=== PATIENT | male | born 1950 | race Caucasian/White ===

== ENCOUNTER 2020-08-02 19:35 | Inpatient (IN) | payer MEDICARE, OTHER ==
[2020-08-02] MEDS ORDERED: ASPIRIN 81 MG PO STA (20:05)
[2020-08-02] MEDS ORDERED: FAMOTIDINE 20 MG/2 ML VIAL IV STA (20:05)
--- NOTE | 2020-08-02 20:28 | XR ---
EXAMINATION TYPE: XR chest 2V DATE OF EXAM: 08/02/2020 COMPARISON: 10/28/2013 HISTORY: Chest pain TECHNIQUE: 2 views FINDINGS: Heart and mediastinum are normal. Lungs are clear. Diaphragm is normal. There are chest semaj ds. IMPRESSION: Normal chest. No change.
--- NOTE | 2020-08-02 20:29 | ED ---
Chest Pain HPI - General Chief Complaint: Chest Pain Stated Complaint: Chest PAin, SOB Time Seen by Provider: 08/02/20 19:48 Source: patient Mode of arrival: wheelchair Limitations: no limitations - History of Present Illness Initial Comments: This is a 70-year-old male with a history of CAD, hypertension, hyperlipidemia and previous stents who presents emergency department for chest pain and upper abdominal pain. The patient states is been going on intermittent for the last 3 days or so. Nothing seems to make it better or worse. It seems to come out of nowhere. He states that he had an episode that woke him up at 3 AM today and has been constant all day. He states it's not exertional. Is not worse with movement or breathing. He states he does not feel short of breath. No cough, fevers, chills. He denies any lower chrie pain or swelling. He states that the pain seems to be in the lower chest or epigastric region and Radiates around to the right flank and to the middle of his back. He describes as an aching sensation and 8 out of 10. He states that he used to have angina and take nitroglycerin frequently however ran out recently. He is been trying Mylanta which did seem to improve his symptoms initially however today did not seem to help speaking in emergency department. He states that he does follow with the cell cleaner, Dr. Springer our has not had any stress test or a cardiac workup in the last 4 years. - Related Data Home Medications Medication Instructions Recorded Confirmed Metoprolol Tartrate [Lopressor] 25 mg PO BID 08/02/20 08/02/20 lisinopriL [Zestril] 5 mg PO DAILY 08/02/20 08/02/20 Previous Rx's Medication Instructions Recorded Aspirin 325 mg PO DAILY #30 tab 10/31/13 Atorvastatin [Lipitor] 80 mg PO HS #30 tab 10/31/13 Nitroglycerin Sl Tabs [Nitrostat] 0.4 mg SUBLINGUAL Q5M PRN #20 tab 10/31/13 Allergies Allergy/AdvReac Type Severity Reaction Status Date / Time No Known Allergies Allergy Verified 08/02/20 21:17 Review of Systems ROS Statement: Those systems with pertinent positive or pertinent negative responses have been documented in the HPI. ROS Other: All systems not noted in ROS Statement are negative. EKG Findings - EKG Comments: EKG Findings:: EKG showing no signs rhythm with a rate 67. There is no abnormal ST 7 changes or T-wave or department QTC 397. Other intervals normal. No ectopy. Past Medical History Past Medical History: Myocardial Infarction ([place]) Last Myocardial Infarction Date:: 10-28-2013 History of Any Multi-Drug Resistant Organisms: None Reported Past Surgical History: Heart Catheterization With Stent, Hernia Repair, Orthopedic Surgery Additional Past Surgical History / Comment(s): inguinal Past Anesthesia/Blood Transfusion Reactions: No Reported Reaction Past Psychological History: No Psychological Hx Reported Smoking Status: Current every day smoker Past Alcohol Use History: None Reported Past Drug Use History: None Reported General Exam - General Exam Comments Initial Comments: Constitutional: [Awake alert] [Appears comfortable] Head: [Normocephalic atraumatic] Eyes: [no conjunctival injection] [No scleral icterus] [EOMI] Neck: [No JVD] [Supple] Heart: [Regular rate rhythm] [normal S1-S2] [no murmurs] Lungs: [Clear to auscultation bilaterally] [No wheezing] [No rales] Abdomen: [Soft] [nondistended] to palpation in the epigastric region without rebound or guarding Extremities: [Non edematous] [DP pulses intact] [Radial pulses intact] Neuro: [A&Ox3] [No focal neurologic deficits] Psych: [Appropriate mood and affect] Limitations: no limitations Course Vital Signs 08/02/20 19:38 Temperature 97.6 F Pulse Rate 74 Respiratory 20 Rate Blood Pressure 149/82 O2 Sat by Pulse 97 Oximetry Chest Pain MDM - MDM This is a 70-year-old male with history of CAD who presents emergency department for chest pain and epigastric pain. Patient had tenderness in his epigastric region on physical examination. He was given aspirin and Pepcid with complete resolution of his symptoms. EKG does not reveal any ischemic changes and troponin was negative. I did do an ultrasound of the right upper quadrant without any signs of acute cholecystitis or biliary teary etiology for his pain symptoms may be gastric related however with his history of CAD and stents and significant risk factors I felt the patient should be watched in the hospital and possibly have further workup performed to evaluate a cardiac etiology of his symptoms. Patient was agreeable with this plan and all questions were answered. Disposition Clinical Impression: Chest pain, Epigastric pain Disposition: ADMITTED IP TO THIS HOSP Condition: Stable Referrals: Nonstaff,Physician [REFERRING] - 1-2 days
[2020-08-02 20:33] LABS: Basophils % (A) 0 %; Eosinophils # (A) 0.2 k/uL (0-0.7); Eosinophils % (A) 2 %; HCT 45.8 % (39.0-53.0); HGB 15.9 gm/dL (13.0-17.5); Lymphocytes % (A) 19 %; MCH 32.6 pg (25.0-35.0); MCHC 34.7 g/dL (31.0-37.0); MCV 93.9 fL (80.0-100.0); Mean Platelet Volume 7.3; Monocytes # (A) 0.4 k/uL (0-1.0); Monocytes % (A) 4 %; Neutrophils # (A) 7.5 k/uL (1.3-7.7); Neutrophils % (A) 73 %; Platelet Count 169 k/uL (150-450); RBC 4.87 m/uL (4.30-5.90); RDW 12.8 % (11.5-15.5); WBC 10.2 k/uL (3.8-10.6)
[2020-08-02 20:46] LABS: Partial Thromboplastin Time 22.8 sec (22.0-30.0); Prothrombin Time 10.4 sec (9.0-12.0)
--- NOTE | 2020-08-02 21:00 | US ---
EXAMINATION TYPE: US abdomen limited DATE OF EXAM: 08/02/2020 COMPARISON: NONE CLINICAL HISTORY: Epigastric RUQ pain. EXAM MEASUREMENTS: Liver Length: 13.8 cm Gallbladder Wall: .4 cm CBD: .4 cm Right Kidney: 9.5 x 3.8 x 4.3 cm Pancreas: Tail obscured by overlying bowel gas Liver: wnl Gallbladder: No stones seen Evidence for sonographic Upton's sign: No CBD: wnl Right Kidney: No hydronephrosis or masses seen IMPRESSION: Negative exam. No gallstones or dilated ducts.
[2020-08-02 21:07] LABS: Calcium 9.5 mg/dL (8.4-10.2); Magnesium 2.3 mg/dL (1.6-2.3); Potassium 3.9 mmol/L (3.5-5.1); Total Bilirubin 0.6 mg/dL (0.2-1.3); Total Protein 6.7 g/dL (6.3-8.2)
[2020-08-02] MEDS ORDERED: NITROGLYCERIN SL TABS 0.4 MG TAB SUBLINGUAL PRN (21:51)
[2020-08-03 06:22] LABS: Cholesterol 99 mg/dL (<200); HDL Cholesterol 29 mg/dL (40-60); LDL Cholesterol,Calculated 43 mg/dL (0-99); Triglycerides 136 mg/dL (<150)
[2020-08-03] MEDS ORDERED: ASPIRIN 325 MG TAB PO SCH (09:00)
[2020-08-03] MEDS ORDERED: AMINOPHYLLINE 500 MG/20 ML VIAL IV PRN (09:25)
[2020-08-03] MEDS ORDERED: REGADENOSON 0.4 MG/5 ML SYRINGE IV PRN (09:25)
[2020-08-03] MEDS ORDERED: CAFFEINE CITRATE 60 MG/3 ML VIAL IV PRN (09:25)
[2020-08-03] MEDS ORDERED: NITROGLYCERIN SL TABS 0.4 MG TAB SUBLINGUAL PRN (09:59)
--- NOTE | 2020-08-03 10:17 | P.CRDCN ---
History of Present Illness History of present illness: HISTORY OF PRESENTING ILLNESS This is a pleasant 70-year-old male past medical history significant for nicotine dependence, hypertension, hyperlipidemia, prior [place] and coronary artery disease status post PCI.. He follows in the office with Dr. Springer. We have been asked to see in consultation for chest pain. Patient is seen and examined at bedside in no apparent distress. . Patient started having chest pain yesterday at 3 AM. He describes the chest pain as a "gas pressure" and that he feels full and it radiates to his back. He states that he took sublingual nitro and Maalox and his chest pain resolved. Chest pain is nonexertional. The pain is not sharp. It feels more of a dull feeling. He denies any palpitations, fatigue, weakness, lightheadedness, syncope. He does endorse some shortness of breath at night and sometimes he has to sleep in a recliner himself on his couch. He does state that sometimes he has to sleep with more than one pillow due to shortness of breath. He denies any history of a stroke, diabetes. He states he is compliant with his medication. He denies alcohol or illicit drug use. He does continue to smoke 1.5 packs per day. Laboratory data reviewed, troponin negative 3, BNP 181, potassium 3.9, sodium 141, magnesium 2.3, WBC 10.2, hemoglobin 15. Triglycerides 136, cholesterol 99, LDL 43, HDL 29. Vital signs BP 120/70, heart rate 67, maintaining oxygen saturations on room air, Afebrile. Telemetry tracings indicate sinus rhyth m.Chest xray no acute cardiopulmonary process Current home cardiac medications include lisinopril 5 mg daily, metoprolol tartrate 25 mg twice a day, atorvastatin 80 mg nightly, aspirin daily. DIAGNOSTICS EKG reveals sinus rhythm, T-wave inversion in lead III, no significant ST-T wave abnormalities, no change from prior EKG 2014 Last Cardiac Catheterization LAD 50-60% lesion. OMbranch has 40-50% lesion. RCA is a dominant vessel, mild ostial disease and also diffuse plaque. The PLV branch has a lesion which is 95% lesion. The proximal portion of the PDA 90% lesion - Successful stenting of large PLV branch of the dominant RCA and PDA branch of the dominant RCA. REVIEW OF SYSTEMS At the time of my exam: CONSTITUTIONAL: Denies fever or chills. CARDIOVASCULAR: +chest pain.+ shortness of breath, +orthopnea, Denies PND or palpitations. RESPIRATORY: Denies cough. GASTROINTESTINAL: Denies abdominal pain, diarrhea, constipation, nausea or vomiting. MUSCULOSKELETAL: Denies myalgias. NEUROLOGIC: Denies numbness, tingling, headacbe or weakness. ENDOCRINE: Denies fatigue, weight change, polydipsia or polyurina. GENITOURINARY: Denies burning, hematuria or urgency with micturation. HEMATOLOGIC: Denies history of anemia or bleeding. PHYSICAL EXAMINATION CONSTITUTIONAL: No apparent distress. HEENT: Head is normocephalic. Pupils are equal, round. Sclerae anicteric. Mucous membranes of the mouth are moist. No JVD. No carotid bruit. CHEST EXAMINATION: Lungs are clear to auscultation. No chest wall tenderness is noted on palpation or with deep breathing. HEART EXAMINATION: Regular rate and rhythm. S1, S2 heard. No murmurs, gallops or rub. ABDOMEN: Soft, nontender. Positive bowel sounds. EXTREMITIES: 2+ peripheral pulses, no lower extremity edema and no calf tenderness. SKIN:intact NEUROLOGIC EXAMINATION: Patient is awake, alert and oriented x3. ASSESSMENT History of inferior wall [place] s/p PCI large PLV branch of the dominant RCA and PDA branch of the dominant RCA. Coronary artery disease nicotine dependence hypertension hyperlipidemia PLAN -Will obtain 2D echo and lexiscan stress test. If no acute findings, ok to discharge patient and follow up outpatient in the office with Dr. Springer as scheduled. -Continue lisinopril 5mg daily, metoprolol 25mg BID, atorvastatin 80mg nightly, aspirin 81mg daily. Nurse Practitioner note has been reviewed, I agree with a documented findings and plan of care. Patient was seen and examined. Past Medical History Past Medical History: Myocardial Infarction ([place]) Last Myocardial Infarction Date:: 10-28-2013 History of Any Multi-Drug Resistant Organisms: None Reported Past Surgical History: Heart Catheterization With Stent, Hernia Repair, Orthopedic Surgery Additional Past Surgical History / Comment(s): inguinal Past Anesthesia/Blood Transfusion Reactions: No Reported Reaction Date of Last Stent Placement:: 2015 Past Psychological History: No Psychological Hx Reported Additional Psychological History / Comment(s): He is has 2 children and several grandchildren he is retired from [employer] Smoking Status: Current every day smoker Past Alcohol Use History: None Reported Past Drug Use History: None Reported - Past Family History Father Family Medical History: Myocardial Infarction ([place]) Mother Family Medical History: Myocardial Infarction ([place]) Medications and Allergies Home Medications Medication Instructions Recorded Confirmed Type Aspirin 325 mg PO DAILY #30 tab 10/31/13 08/02/20 Rx Atorvastatin [Lipitor] 80 mg PO HS #30 tab 10/31/13 08/02/20 Rx Nitroglycerin Sl Tabs [Nitrostat] 0.4 mg SUBLINGUAL Q5M PRN #20 tab 10/31/13 08/02/20 Rx Metoprolol Tartrate [Lopressor] 25 mg PO BID 08/02/20 08/02/20 History lisinopriL [Zestril] 5 mg PO DAILY 08/02/20 08/02/20 History Allergies Allergy/AdvReac Type Severity Reaction Status Date / Time No Known Allergies Allergy Verified 08/02/20 21:17 Physical Exam Vitals: Vital Signs Temp Pulse Pulse Resp BP BP Pulse Ox 08/03/20 03:00 70 18 08/03/20 02:00 97.6 F 70 18 144/80 95 08/02/20 22:58 97.5 F L 70 18 146/79 95 08/02/20 22:57 97.5 F L 70 18 146/79 99 08/02/20 22:31 60 16 142/83 97 08/02/20 19:38 97.6 F 74 20 149/82 97 Intake and Output 08/02/20 08/03/20 08/03/20 22:59 06:59 14:59 Other: Voiding Method Toilet # Voids 3 Weight 68.039 kg Results 08/02/20 20:15 08/02/20 20:15 Cardiac Enzymes 08/02/20 08/02/20 08/02/20 Range/Units 20:15 20:15 22:32 AST 20 (17-59) U/L Troponin I <0.012 <0.012 (0.000-0.034) ng/mL 08/03/20 Range/Units 02:32 AST (17-59) U/L Troponin I <0.012 (0.000-0.034) ng/mL Coagulation 08/02/20 Range/Units 20:15 PT 10.4 (9.0-12.0) sec APTT 22.8 (22.0-30.0) sec Lipids 08/03/20 Range/Units 02:32 Triglycerides 136 (<150) mg/dL Cholesterol 99 (<200) mg/dL HDL Cholesterol 29 L (40-60) mg/dL CBC 08/02/20 Range/Units 20:15 WBC 10.2 (3.8-10.6) k/uL RBC 4.87 (4.30-5.90) m/uL Hgb 15.9 (13.0-17.5) gm/dL Hct 45.8 (39.0-53.0) % Plt Count 169 (150-450) k/uL Comprehensive Metabolic Panel 08/02/20 Range/Units 20:15 Sodium 141 (137-145) mmol/L Potassium 3.9 (3.5-5.1) mmol/L Chloride 107 (98-107) mmol/L Carbon Dioxide 27 (22-30) mmol/L BUN 14 (9-20) mg/dL Creatinine 1.04 (0.66-1.25) mg/dL Glucose 110 H (74-99) mg/dL Calcium 9.5 (8.4-10.2) mg/dL AST 20 (17-59) U/L ALT 12 (4-49) U/L Alkaline Phosphatase 105 (38-126) U/L Total Protein 6.7 (6.3-8.2) g/dL Albumin 4.0 (3.5-5.0) g/dL Current Medications Generic Name Dose Route Start Last Admin Trade Name Freq PRN Reason Stop Dose Admin Aspirin 325 mg 08/03/20 09:00 Aspirin 325 Mg Tab PO DAILY SEGUNDO Nitroglycerin 0.4 mg 08/02/20 21:51 Nitroglycerin Sl Tabs 0.4 Mg Tab SUBLINGUAL Q5M PRN Chest Pain Intake and Output 08/02/20 08/03/20 08/03/20 22:59 06:59 14:59 Other: Voiding Method Toilet # Voids 3 Weight 68.039 kg 08/02/20 20:15 08/02/20 20:15
--- NOTE | 2020-08-03 11:46 | P.STRESS ---
- Stress Test Note Stress Test Results/Findings: Exam Performed: NM stress lexiscan cardiolite Exam Date: 08/03/20 Reason for Exam: CP Height: 5 ft 9 in Weight: 68.04 kg Protocol: LEXISCAN CARDIOLITE Stage: NA Duration of Exercise: NA Resting Heart Rate: 71 Resting Blood Pressure: 143/79 Maximum Achieved Heart Rate: 116 Maximum Achieved Blood Pressure: 146/86 85% PMHR: 128 100% PMHR: 150 METS: NA Technologist Comment: Stress Test Results/Findings: This is a 70-year-old gentleman was admitted to the hospital with chest pain. Has history of ischemic heart disease, hypertension and smoking history. Stress data: Baseline EKG showed sinus rhythm with normal NV interval and QRS duration Blood pressure at rest is 143/79 with pulse rate of 71. A standard dose of Lexiscan was infused. EKG is a taken during and after infusion did not reveal any significant changes from her baseline. Patient complained of mild shortness of breath. Final impression: #1. Negative Lexiscan stress test #2. Report on nuclear images to be given by the radiologist
[2020-08-03] MEDS: lisinopriL 5 MG TAB PO SCH (11:57)
[2020-08-03] MEDS: ASPIRIN 81 MG PO SCH (11:57)
[2020-08-03] MEDS: METOPROLOL TARTRATE 25 MG TAB PO SCH ×2 (11:57→20:37)
--- NOTE | 2020-08-03 12:17 | NM ---
EXAMINATION TYPE: NM stress lexiscan cardiolite DATE OF EXAM: 08/03/2020 COMPARISON: NONE HISTORY: Chest pain TECHNIQUE: After the intravenous administration of 9.8 mCi Tc 99m Sestamibi - Cardiolite resting SPE CT images acquired 55 minutes post injection. At peak stress 24.9 mCi Tc 99m Sestamibi - Stress images obtained 35 minutes post injection The patient was stressed with 0.4mg Lexiscan. FINDINGS: No fixed defects are evident. There is a defect along the proximal to distal inferior lateral wall on stress images. This area has a more normal radiotracer distribution on the resting images images. Polar maps identifies area altho ugh the defect is smaller on the polar maps than on the SPECT imaging. Wall motion is normal. Ejection fraction is calculated to be 68 %. IMPRESSION: 1. Stress-induced ischemic change inferior lateral wall. A [place] level critical message alert has been initiated for Ramone Ferrell MD~[id number] via the [employer] Critical Results System on 08/03/2020 12:14 PM. This message alert has been sent to Ramone dominguez MD~[id number] via the preferences provided by the clinician for the receipt of Radiology Critical Fi ndings. Message ID [id number].
[2020-08-03] MEDS ORDERED: SODIUM CHLORIDE 0.9% 1,000 ML in EMPTY BAG 1 BAG IV ONE (14:00)
[2020-08-03] MEDS ORDERED: ALPRAZolam 0.5 MG TAB PO PRN (14:00)
[2020-08-03] MEDS ORDERED: ALPRAZolam 0.25 MG TAB PO PRN (14:00)
--- NOTE | 2020-08-03 16:36 | P.HPIM ---
History of Present Illness H&P Date: 08/03/20 Chief Complaint: Chest pain Mr. Saucedo is a 70-year-old male with a past medical history of hypertension, hyperlipidemia, coronary artery disease status post 3 stents, smoking history, who follows with cardiology, who is a patient of Dr. Springer as outpatient imaging in with a chief complaint of chest pain. Patient states that he had chest pain that woke him up from sleep at 3 AM in the morning. He states that he had a pressure-like sensation in the middle of his chest that was slightly radiating to his back, associated with some sweating. He states that he took sublingual nitroglycerin and Maalox after which his chest pain resolved. Patient denied having any lightheadedness, palpitations or syncopal episode when he had the chest pain. Patient mentions that he had mild difficulty in breathing at the time when he had the chest pain that eventually resolved. Patient denies having any lower extremity swelling. He has history of smoking 1-1/2 packs a day for many years. In the ER patient had workup done, troponins 3 negative, BNP 181. Chest x-ray showing no acute cardiopulmonary process. EKG showing sinus rhythm with T-wave inversion in lead 3. So eventually the patient was admitted for workup of his chest pain. Patient was seen by cardiology, had a stress test done this morning that was positive for stress-induced ischemic changes in the inferior lateral wall. So the patient is being scheduled for cardiac cath for tomorrow morning. Review of Systems REVIEW OF SYSTEMS: CONSTITUTIONAL: No fever, no malaise, no fatigue. HEENT: No recent visual problems or hearing problems. Denied any sore throat. CARDIOVASCULAR: As per HPI PULMONARY: No shortness of breath, no cough, no hemoptysis. GASTROINTESTINAL: No diarrhea, no nausea, no vomiting, no abdominal pain. NEUROLOGICAL: No headaches, no weakness, no numbness. HEMATOLOGICAL: Denies any bleeding or petechiae. GENITOURINARY: Denies any burning micturition, frequency, or urgency. MUSCULOSKELETAL/RHEUMATOLOGICAL: No joint pain or swelling ENDOCRINE: Denies any polyuria or polydipsia. The rest of the 14-point review of systems is negative. Past Medical History Past Medical History: Myocardial Infarction ([place]) Last Myocardial Infarction Date:: 10-28-2013 History of Any Multi-Drug Resistant Organisms: None Reported Past Surgical History: Heart Catheterization With Stent, Hernia Repair, Orthopedic Surgery Additional Past Surgical History / Comment(s): inguinal Past Anesthesia/Blood Transfusion Reactions: No Reported Reaction Date of Last Stent Placement:: 2015 Past Psychological History: No Psychological Hx Reported Additional Psychological History / Comment(s): He is has 2 children and several grandchildren he is retired from [employer] Smoking Status: Current every day smoker Past Alcohol Use History: None Reported Past Drug Use History: None Reported - Past Family History Father Family Medical History: Myocardial Infarction ([place]) Mother Family Medical History: Myocardial Infarction ([place]) Medications and Allergies Home Medications Medication Instructions Recorded Confirmed Type Aspirin 325 mg PO DAILY #30 tab 10/31/13 08/02/20 Rx Atorvastatin [Lipitor] 80 mg PO HS #30 tab 10/31/13 08/02/20 Rx Nitroglycerin Sl Tabs [Nitrostat] 0.4 mg SUBLINGUAL Q5M PRN #20 tab 10/31/13 08/02/20 Rx Metoprolol Tartrate [Lopressor] 25 mg PO BID 08/02/20 08/02/20 History lisinopriL [Zestril] 5 mg PO DAILY 08/02/20 08/02/20 History Allergies Allergy/AdvReac Type Severity Reaction Status Date / Time No Known Allergies Allergy Verified 08/02/20 21:17 Physical Exam Vitals: Vital Signs Temp Pulse Pulse Resp BP BP Pulse Ox 08/03/20 12:42 18 125/77 93 L 08/03/20 08:00 16 08/03/20 07:00 98.0 F 67 16 123/70 95 08/03/20 03:00 70 18 08/03/20 02:00 97.6 F 70 18 144/80 95 08/02/20 22:58 97.5 F L 70 18 146/79 95 08/02/20 22:57 97.5 F L 70 18 146/79 99 08/02/20 22:31 60 16 142/83 97 08/02/20 19:38 97.6 F 74 20 149/82 97 Intake and Output 08/02/20 08/03/20 08/03/20 22:59 06:59 14:59 Other: Voiding Method Toilet Toilet # Voids 3 Weight 68.039 kg 68.04 kg PHYSICAL EXAMINATION: GENERAL: The patient is alert and oriented x3, not in any acute distress. Chronically ill appearing HEENT: Pupils are round and equally reacting to light. EOMI. No scleral icterus. No conjunctival pallor. Normocephalic, atraumatic. No pharyngeal erythema. No thyromegaly. CARDIOVASCULAR: S1 and S2 present. No murmurs, rubs, or gallops. PULMONARY: Decreased breath sounds in all lung quinn. No wheeze or crackles. ABDOMEN: Soft, nontender, nondistended, normoactive bowel sounds. No palpable organomegaly. MUSCULOSKELETAL: No joint swelling or deformity. EXTREMITIES: No cyanosis, clubbing, or pedal edema. NEUROLOGICAL: Gross neurological examination did not reveal any focal deficits. SKIN: No rashes. Results CBC & Chem 7: 08/02/20 20:15 08/02/20 20:15 Labs: Abnormal Lab Results - Last 24 Hours (Table) 08/02/20 08/03/20 Range/Units 20:15 02:32 Glucose 110 H (74-99) mg/dL HDL Cholesterol 29 L (40-60) mg/dL Thrombosis Risk Factor Assmnt - Choose All That Apply Each Factor Represents 1 point: Acute IA Each Risk Factor Represents 2 Points: Age 61-74 years Other congenital or acquired thrombophilia - If yes, enter type in comment: No Thrombosis Risk Factor Assessment Total Risk Factor Score: 3 Thrombosis Risk Factor Assessment Level: Moderate Risk Assessment and Plan Assessment: ASSESSMENT Chest pain Positive stress test Coronary artery disease status post stenting History of inferior wall [place] Nicotine dependence ongoing Hypertension Hyperlipidemia PLAN: As the patient has positive stress test, his being boarded for cardiac cath tomorrow morning. Cardiology Dr. Springer on board and following the patient. Continue with beta bessy, statin, aspirin, ANGELIA inhibitor. Further recommendations to follow depending on the progress of the patient.
[2020-08-03] MEDS: ATORVASTATIN 80 MG TAB PO SCH (20:37)
[2020-08-04] MEDS: ASPIRIN 81 MG PO SCH (05:40)
[2020-08-04] MEDS: lisinopriL 5 MG TAB PO SCH (05:40)
[2020-08-04] MEDS: METOPROLOL TARTRATE 25 MG TAB PO SCH (05:40)
[2020-08-04 05:55] LABS: Basophils % (A) 0 %; Eosinophils # (A) 0.2 k/uL (0-0.7); Eosinophils % (A) 1 %; HCT 44.2 % (39.0-53.0); HGB 15.1 gm/dL (13.0-17.5); Lymphocytes # (A) 1.8 k/uL (1.0-4.8); Lymphocytes % (A) 16 %; MCH 31.8 pg (25.0-35.0); MCHC 34.1 g/dL (31.0-37.0); MCV 93.4 fL (80.0-100.0); Mean Platelet Volume 6.9; Monocytes # (A) 0.5 k/uL (0-1.0); Monocytes % (A) 5 %; Neutrophils # (A) 8.7 k/uL (1.3-7.7); Neutrophils % (A) 77 %; Platelet Count 149 k/uL (150-450); RBC 4.73 m/uL (4.30-5.90); RDW 12.8 % (11.5-15.5); WBC 11.4 k/uL (3.8-10.6)
[2020-08-04 06:21] LABS: African American GFR (CKD) >90 (>60 ml/min/1.73 sqM); Anion Gap 3 mmol/L; Blood Urea Nitrogen 14 mg/dL (9-20); Calcium 8.8 mg/dL (8.4-10.2); Carbon Dioxide 28 mmol/L (22-30); Chloride 109 mmol/L (98-107); Glucose 100 mg/dL (74-99); Non-African American GFR(CKD) 79 (>60 ml/min/1.73 sqM); Potassium 3.7 mmol/L (3.5-5.1); Sodium 140 mmol/L (137-145)
[2020-08-04] MEDS ORDERED: HEPARIN SODIUM,PORCINE 10,000 UNIT in SODIUM CHLORIDE 0.9% 1,000 ML IRRIGATION PRN (07:00)
[2020-08-04] MEDS ORDERED: HEPARIN SODIUM,PORCINE 2,500 UNIT in SODIUM CHLORIDE 0.9% 250 ML IRRIGATION PRN (07:00)
--- NOTE | 2020-08-04 09:26 | EST ---
Stress Test Results/Findings: Exam Performed: NM stress lexiscan cardiolite Exam Date: 08/03/20 Reason for Exam: CP Height: 5 ft 9 in Weight: 68.04 kg Protocol: LEXISCAN CARDIOLITE Stage: NA Duration of Exercise: NA Resting Heart Rate: 71 Resting Blood Pressure: 143/79 Maximum Achieved Heart Rate: 116 Maximum Achieved Blood Pressure: 146/86 85% PMHR: 128 100% PMHR: 150 METS: NA Technologist Comment: Stress Test Results/Findings: This is a 70-year-old gentleman was admitted to the hospital with chest pain. Has history of ischemic heart disease, hypertension and smoking history. Stress data: Baseline EKG showed sinus rhythm with normal IA interval and QRS duration Blood pressure at rest is 143/79 with pulse rate of 71. A standard dose of Lexiscan was infused. EKG is a taken during and after infusion did not reveal any significant changes from her baseline. Patient complained of mild shortness of breath. Final impression: #1. Negative Lexiscan stress test #2. Report on nuclear images to be given by the radiologist SALVADOR
[2020-08-04] MEDS ORDERED: LIDOCAINE 1% INJ 10MG/ML (20 ML MDV) ONE (10:54)
[2020-08-04] MEDS ORDERED: LIDOCAINE 1% INJ 10MG/ML (20 ML MDV) SQ ONE (11:16)
[2020-08-04] MEDS ORDERED: MIDAZOLAM 2 MG/2 ML VIAL IV ONE (11:16)
[2020-08-04] MEDS ORDERED: IV FLUID CONTINUATION 400 ML IV ONE (11:25)
[2020-08-04] MEDS ORDERED: IOPAMIDOL-370 100ML BTL INJ ONE (11:32)
--- NOTE | 2020-08-04 12:24 | ECHOF ---
Referral Reason:shortness of breath and chest pain MEASUREMENTS -------- HEIGHT: 175.3 cm WEIGHT: 63.5 kg BP: RVIDd: 3.6 cm (< 3.3) IVSd: 1.2 cm (0.6 - 1.1) LVIDd: 3.7 cm (3.9 - 5.3) LVPWd: 1.3 cm (0.6 - 1.1) IVSs: 1.5 cm LVIDs: 3.0 cm LVPWs: 1.3 cm LA Diam: 3.4 cm (2.7 - 3.8) Ao Diam: 3.4 cm (2.0 - 3.7) AV Cusp: 2.0 cm (1.5 - 2.6) MV EXCURSION: 18.742 mm (> 18.000) MV EF SLOPE: 86 mm/s (70 - 150) EPSS: 0.3 cm MV E [place]: 0.55 m/s MV DecT: 195 ms MV A [place]: 0.67 m/s MV E/A Ratio: 0.82 RAP: 5.00 mmHg RVSP: 25.99 mmHg FINDINGS -------- Sinus rhythm. This was a technically good study. LV size, wall thickness and systolic function are normal, with an EF greater than 55%. The left gui tricular size is normal. The right ventricle is normal in size. The left atrial size is normal. The right atrial size is normal. The aortic valve is trileaflet, and appears structurally normal. No aortic stenosis or regurgitation. Mild mitral regurgitation is present. Mild tricuspid regurgitation present. Right ventricular systolic pressure is normal at < 35 mmHg. There is no pulmonic regurgitation present. The aortic root size is normal. There is no pericardial effusion. CONCLUSIONS -------- 1. LV size, wall thickness and systolic function are normal, with an EF greater than 55%. 2. The left ventricular size is normal. 3. The right ventricle is normal in size. 4. The left atrial size is normal. 5. The right atrial size is normal. 6. The aortic valve is trileaflet, and appears structurally normal. No aortic stenosis or regurgitati on. 7. Mild mitral regurgitation is present. 8. Mild tricuspid regurgitation present. 9. The aortic root size is normal. 10. There is no pericardial effusion. TALENT SOURCING SPECIALIST: Jailene Paredes RDCS
--- NOTE | 2020-08-04 15:24 | P.PN ---
Subjective Progress Note Date: 08/04/20 Mr. Saucedo is a 70-year-old male with a past medical history of hypertension, hyperlipidemia, coronary artery disease status post 3 stents, smoking history, who follows with cardiology, who is a patient of Dr. Springer as outpatient imaging in with a chief complaint of chest pain. Patient states that he had chest pain that woke him up from sleep at 3 AM in the morning. He states that he had a pressure-like sensation in the middle of his chest that was slightly radiating to his back, associated with some sweating. He states that he took sublingual nitroglycerin and Maalox after which his chest pain resolved. Patient denied having any lightheadedness, palpitations or syncopal episode when he had the chest pain. Patient mentions that he had mild difficulty in breathing at the time when he had the chest pain that eventually resolved. Patient denies having any lower extremity swelling. He has history of smoking 1-1/2 packs a day for many years. In the ER patient had workup done, troponins 3 negative, BNP 181. Chest x-ray showing no acute cardiopulmonary process. EKG showing sinus rhythm with T-wave inversion in lead 3. So eventually the patient was admitted for workup of his chest pain. Patient was seen by cardiology, had a stress test done this morning that was positive for stress-induced ischemic changes in the inferior lateral wall. So the patient is being scheduled for cardiac cath for tomorrow morning. 08/04/2020 Patient is seen and evaluated status post stress test showing some ischemic changes in the inferior lateral wall and scheduled to undergo cardiac cathete rization today. Patient denies any chest pain, shortness of breath, or palpitations. Patient is currently nothing by mouth for the procedure and will resume diet status post catheterization. Review of systems: Constitutional: No reports of fatigue, fever, or chills Cardiovascular: No reports of chest pain or palpitations Respiratory: No reports of shortness of breath or cough GI: No reports of nausea, vomiting, or diarrhea : No reports of dysuria or retention Neurovascular: No reports of weakness or numbness All medications have been reviewed Objective - Vital Signs Vital signs: Vital Signs Temp 97.4 F L 08/04/20 13:35 Pulse 80 08/04/20 14:45 Resp 16 08/04/20 14:45 BP 128/67 08/04/20 14:45 Pulse Ox 94 L 08/04/20 14:45 Intake & Output 08/03/20 08/04/20 08/04/20 18:59 06:59 18:59 Intake Total 400 Balance 400 Weight 68.04 kg Intake: Oral 400 Other: Voiding Method Toilet Toilet # Voids 2 2 3 - Exam GENERAL: The patient is alert and oriented x3, not in any acute distress. Chronically ill appearing HEENT: Pupils are round and equally reacting to light. EOMI. No scleral icterus. No conjunctival pallor. Normocephalic, atraumatic. No pharyngeal erythema. No thyromegaly. CARDIOVASCULAR: S1 and S2 present. No murmurs, rubs, or gallops. PULMONARY: Decreased breath sounds in all lung quinn. No wheeze or crackles. ABDOMEN: Soft, nontender, nondistended, normoactive bowel sounds. No palpable organomegaly. MUSCULOSKELETAL: No joint swelling or deformity. EXTREMITIES: No cyanosis, clubbing, or pedal edema. NEUROLOGICAL: Gross neurological examination did not reveal any focal deficits. SKIN: No rashes. - Labs CBC & Chem 7: 08/04/20 05:22 08/04/20 05:22 Labs: Abnormal Lab Results - Last 24 Hours (Table) 08/04/20 08/04/20 Range/Units 05:22 05:22 WBC 11.4 H (3.8-10.6) k/uL Plt Count 149 L (150-450) k/uL Neutrophils # 8.7 H (1.3-7.7) k/uL Chloride 109 H (98-107) mmol/L Glucose 100 H (74-99) mg/dL Assessment and Plan Assessment: Chest pain Positive stress test Coronary artery disease status post stenting History of inferior wall [place] Nicotine dependence ongoing Hypertension Hyperlipidemia PLAN: Patient is status post stress test showing positive ischemic changes and underwent cardiac catheterization today with stent placement. Cardiology Dr. Concha jasmine on board and following the patient. Labs today within normal limits. Patient also underwent an echo showing LV size, wall thickness, and systolic function are normal with an EF greater than 55% with some mild mitral and tricuspid regurgitation present. Continue with beta bessy, statin, aspirin, ANGELIA inhibitor. Will repeat a.m. labs and continue to monitor vital signs closely. Further recommendations to follow depending on the progress of the patient. Will discuss with cardiology about discharge medications and follow-up outpatient. Possible discharge in 24 hours.
[2020-08-04] MEDS: SODIUM CHLORIDE 0.9% 1,000 ML IV SCH (16:19)
--- NOTE | 2020-08-04 19:50 | CC ---
CARDIAC CATHETERIZATION REPORT DATE OF SERVICE: PROCEDURE: Left heart catheterization and coronary angiography. PERFORMED BY: Dr. Tari Springer. Moderate conscious sedation time was 21 minutes. Patient was administered Versed. Oxygen saturation, hemodynamics and EKG were monitored closely. CLINICAL INFORMATION: Mr. Martin Saucedo is a 70-year-old gentleman with a history of inferior [place] in 2013 when I performed stenting of both PDA and PLV branches, independent stents to each vessel beyond the ostium. He had a large thrombus-filled PLV with inferior [place] with good recovery after that. He continues to smoke and has a moderate risk factor profile. He came into the hospital with nondescript chest pain and had a stress test which revealed inferolateral partially reversible defect. Given his known CAD and risk factors and prior [employer], he was advised cardiac catheterization after due discussion. Patient understood all details and wished to proceed with the procedure. PROCEDURE NOTE: Under local anesthesia and strict aseptic precautions, a 6-Liberian introducer was placed in the right femoral artery. Using standard Luis Alberto catheters I performed coronary angiography, and the same right catheter was used to check LV pressures. LV gram was not performed. The sheath was taken out and Angio-Seal device used to secure hemostasis and patient was sent to the room in a stable condition. The results were discussed in detail with the patient and . Continued medical therapy was advised. CARDIAC CATHETERIZATION FINDINGS: The left ventricular end-diastolic pressure was about 10-12 mmHg without any gradient across the aortic valve. RIGHT CORONARY ARTERY: Dominant vessel has an ostial lesion of 40% distally. It bifurcates into PDA and PLV, both of which were stented, and the stented areas are widely patent with excellent flow. The mid and proximal RCA has mild irregularities; no significant disease. RCA is therefore dominant with a 40% ostial lesion. No damping, and stented PDA and PLV branches are widely patent. LEFT MAIN CORONARY ARTERY: This is a fair-caliber vessel, has mild calcification distally, tapers to 10% to 15% narrowing and bifurcates into LAD and circumflex. LEFT ANTERIOR DESCENDING CORONARY ARTERY: Fair-caliber vessel extends along the anterior wall, gives off septal and diagonal branches. There is multiple 30% to 40% narrowing throughout the LAD and also in diagonal branches, and the vessel runs all the way to the apex. Overall LAD is a small system, small in caliber, with mild diffuse disease but no critical stenosis. LEFT POSTERIOR CIRCUMFLEX CORONARY ARTERY: Nondominant vessel comes off from the left main and gives a single obtuse marginal and runs in the AV groove. Very proximally as it comes off from the ostium there appears to be an eccentric 70% lesion, best seen in [place] caudal projection. However, the amount of myocardium supplied by circumflex is not very large and the lesion appears to be fairly close to the left main, where there is also a plaque. FINAL IMPRESSION: This patient has a right-dominant system with widely patent PDA and PLV branches of RCA and 40% ostial lesion. The PDA and PLV were stented in 2013. Left main has 15% distal lesion. LAD has 30% to 40% multiple areas of narrowing. Circumflex very proximally, although nondominant, has about an eccentric 70% lesion pretty close to the left main, and there is some plaque in the left main distally as well. RECOMMENDATIONS: Findings were reviewed with the patient and his . Given the fact that the amount of myocardium supplied by circumflex is relatively small and the lesion is close to the left main and intervention would involve stenting the left main as well, I am recommending that we pursue medical therapy, and I have advised the patient regarding smoking cessation and risk factor modification. I reviewed the nuclear scan. I do not believe the defect is related to the circumflex distribution at all, and it is actually a more fixed defect than a reversible defect, and therefore I believe there is no significant area of ischemia. The lesion is not easily amenable to intervention in the circumflex, which is a nondominant vessel. Therefore I am recommending medical therapy. I explained this to the patient and his in great detail. He can be discharged tomorrow and we will pursue medical therapy. He has been counseled regarding smoking cessation. MMODL / IJN: [id number] /
[2020-08-04] MEDS: ATORVASTATIN 80 MG TAB PO SCH (20:15)
[2020-08-04] MEDS ORDERED: METOPROLOL TARTRATE 25 MG TAB PO SCH (21:00)
[2020-08-04 21:56] VITALS: RESP 15
[2020-08-05] MEDS: SODIUM CHLORIDE 0.9% 1,000 ML IV SCH (01:59)
[2020-08-05 07:37] VITALS: BP 131/72; PULSE 73; TEMP 98.2
[2020-08-05] MEDS ORDERED: METOPROLOL TARTRATE 50 MG TAB PO SCH (09:00)
[2020-08-05] MEDS: lisinopriL 5 MG TAB PO SCH (09:18)
[2020-08-05] MEDS: ASPIRIN 81 MG PO SCH (09:18)
--- NOTE | 2020-08-05 10:50 | P.PN ---
Subjective ISTORY OF PRESENTING ILLNESS This is a pleasant 70-year-old male past medical history significant for nicotine dependence, hypertension, hyperlipidemia, prior [place] and coronary artery disease status post PCI.. He follows in the office with Dr. Springer. We have been asked to see in consultation for chest pain. Patient is seen and examined at bedside in no apparent distress. . Patient started having chest pain yesterday at 3 AM. He describes the chest pain as a "gas pressure" and that he feels full and it radiates to his back. He states that he took sublingual nitro and Maalox and his chest pain resolved. Chest pain is nonexertional. The pain is not sharp. It feels more of a dull feeling. He denies any palpitations, fatigue, weakness, lightheadedness, syncope. He does endorse some shortness of breath at night and sometimes he has to sleep in a recliner himself on his couch. He does state that sometimes he has to sleep wit h more than one pillow due to shortness of breath. He denies any history of a stroke, diabetes. He states he is compliant with his medication. He denies alcohol or illicit drug use. He does continue to smoke 1.5 packs per day. Laboratory data reviewed, troponin negative 3, BNP 181, potassium 3.9, sodium 141, magnesium 2.3, WBC 10.2, hemoglobin 15. Triglycerides 136, cholesterol 99, LDL 43, HDL 29. Vital signs BP 120/70, heart rate 67, maintaining oxygen saturations on room air, Afebrile. Telemetry tracings indicate sinus rhythm. Chest xray no acute cardiopulmonary process. EKG reveals sinus rhythm, T-wave inversion in lead III, no significant ST-T wave abnormalities, no change from prior EKG 2014 Last Cardiac Catheterization LAD 50-60% lesion. OMbranch has 40-50% lesion. RCA is a dominant vessel, mild ostial disease and also diffuse plaque. The PLV branch has a lesion which is 95% lesion. The proximal portion of the PDA 90% lesion - Successful stenting of large PLV branch of the dominant RCA and PDA branch of the dominant RCA. Patient underwent Lexiscan stress test on 08/03 which revealed stress induced ischemic change and inferior lateral wall. Patient underwent cardiac catheterization throught the right groin with Dr. Springer on 08/04 which revealed right dominant system with patent stents of PDA and PLV branches of RCA and 40% ostial lesion. Left main has 15% distal lesion. LAD has 30% to 40% multiple areas of narrowing. Circumflex very proximally although nondominant has an eccentric 70% lesion pretty close to the left main- a more fixed Medical therapy was recommended 08/05/20: Patient is seen and examined at bedside, no acute distress. No complaints. Eager to go to home. Blood pressure 131/72, heart rate 70s, and maintaining oxygen saturations on room air, afebrile. Telemetry reviewed patient in sinus mechanism. Patient is currently being maintained on lisinopril 5 mg daily, metoprolol tartrate 50mg morning, and metoprolol tartrate 25mg nightly, atorvastatin 80 mg nightly, aspirin 81 daily. PHYSICAL EXAMINATION CONSTITUTIONAL: No apparent distress. HEENT: Head is normocephalic. Pupils are equal, round. Sclerae anicteric. Mucous membranes of the mouth are moist. No JVD. No carotid bruit. CHEST EXAMINATION: Lungs are clear to auscultation. No chest wall tenderness is noted on palpation or with deep breathing. HEART EXAMINATION: Regular rate and rhythm. S1, S2 heard. No murmurs, gallops or rub. ABDOMEN: Soft, nontender. Positive bowel sounds. EXTREMITIES: 2+ peripheral pulses, no lower extremity edema and no calf tenderness. SKIN:intact. R groin site- intact, open to air, clean and dry. No ecchymosis, swelling or bleeding noted. NEUROLOGIC EXAMINATION: Patient is awake, alert and oriented x3. ASSESSMENT History of inferior wall [place] s/p PCI large PLV branch of the dominant RCA and PDA branch of the dominant RCA. Coronary artery disease nicotine dependence hypertension hyperlipidemia PLAN -From cardiology perspective patient stable for discharge. -Continue lisinopril 5mg daily, metoprolol tartrate 50mg morning and metoprolol tartrate 25mg nightly, atorvastatin 80mg nightly, aspirin 81mg daily. -Patient advised on smoking cessation and risk factor modification -Patient to follow-up with Dr. Springer in the outpatient office in one week Nurse Practitioner note has been reviewed, I agree with a documented findings and plan of care. Patient was seen and examined. Objective - Vital Signs Vital signs: Vital Signs Temp 98.2 F 08/05/20 07:00 Pulse 73 08/05/20 07:00 Resp 15 08/05/20 07:00 BP 131/72 08/05/20 07:00 Pulse Ox 96 08/05/20 07:00 Intake & Output 08/04/20 08/05/20 08/05/20 18:59 06:59 18:59 Intake Total 0 80 Balance 0 80 Intake: Oral 0 80 Other: Voiding Method Toilet # Voids 3 2 - Labs CBC & Chem 7: 08/04/20 05:22 08/04/20 05:22
--- NOTE | 2020-08-05 11:25 | P.DS ---
Providers Date of admission: 08/04/20 07:22 Expected date of discharge: 08/05/20 Attending physician: Tena Richey MD Consults: 08/02/20 21:51 Consult Physician Urgent Consulting Provider: [facility] Consult Reason/Comments: chest pain Do you want consulting provider notified?: Yes, Notify in am Primary care physician: Gloria Bella [facility] Course: Final diagnosis Chest pain Positive stress test Coronary artery disease History of inferior wall [place] Nicotine dependence ongoing Hypertension Hyperlipidemia Discharge disposition Patient is being discharged in a stable condition with guarded prognosis to home. Patient will follow-up with Dr. Bella in the outpatient setting upon discharge. Patient will follow-up with cardiology Dr. Springer in the outpatient setting as scheduled. Total time taken is greater than 35 minutes. Hospital course Mr. Saucedo is a 70-year-old male with a past medical history of hypertension, hyperlipidemia, coronary artery disease status post 3 stents, smoking history, who follows with cardiology, who is a patient of Dr. Springer as outpatient imaging in with a chief complaint of chest pain. Patient states that he had chest pain that woke him up from sleep at 3 AM in the morning. He states that he had a pressure-like sensation in the middle of his chest that was slightly radiating to his back, associated with some sweating. He states that he took sublingual nitroglycerin and Maalox after which his chest pain resolved. Patient denied having any lightheadedness, palpitations or syncopal episode when he had the chest pain. Patient mentions that he had mild difficulty in breathing at the time when he had the chest pain that eventually resolved. Patient denies having any lower extremity swelling. He has history of smoking 1-1/2 packs a day for many years. In the ER patient had workup done, troponins 3 negative, BNP 181. Chest x-ray showing no acute cardiopulmonary process. EKG showing sinus rhythm with T-wave inversion in lead 3. So eventually the patient was admitted for workup of his chest pain. Patient was seen by cardiology, had a stress test done this morning that was positive for stress-induced ischemic changes in the inferior lateral wall. So the patient is being scheduled for cardiac cath for tomorrow morning. 08/04/2020 Patient is seen and evaluated status post stress test showing some ischemic changes in the inferior lateral wall and scheduled to undergo cardiac catheterization today. Patient denies any chest pain, shortness of breath, or palpitations. Patient is currently nothing by mouth for the procedure and will resume diet status post catheterization. 08/05/2020 Patient is seen this morning in follow-up with no acute overnight issues. Patient denies any chest pain or palpitations. Patient underwent cardiac catheterization which showed systolic function normal with an EF greater than 55% with some wall thickness and patient is being managed medically and will follow-up with cardiology outpatient. Catheterization showed some areas of narrowing in the LAD with the left main having a 15% distal lesion with some plaque noted and also the fact that the amount of myocardium supplied by circumflex is relatively small and the lesion is close to the left main cardiology recommending medical management. Medications have been adjusted and sent to the pharmacy. Patient is again educated to refrain from any tobacco use. Currently no reports of chest pain, shortness of breath, or palpitations. Patient is afebrile. No reports of nausea or vomiting and patient is tolerating diet. Patient will be discharged home today. On exam vital signs are stable. Cardio S1, S2 are muffled. Respiratory system shows diminished breath sounds at the bases with no wheezing or rhonchi noted. Abdomen is soft and obese, and nontender. Nervous system shows no focal deficits. Please refer to medication reconciliation sheet for a list of medications. Patient Condition at Discharge: Stable Plan - Discharge Summary Discharge Rx Participant: No New Discharge Prescriptions: New Aspirin 81 mg PO DAILY chew Metoprolol Tartrate [Lopressor] 50 mg PO DAILY 30 Days #30 tab Metoprolol Tartrate [Lopressor] 25 mg PO HS 30 Days #30 tab Continue Atorvastatin [Lipitor] 80 mg PO HS #30 tab Nitroglycerin Sl Tabs [Nitrostat] 0.4 mg SUBLINGUAL Q5M PRN #20 tab PRN Reason: Chest Pain lisinopriL [Zestril] 5 mg PO DAILY Discontinued Aspirin 325 mg PO DAILY #30 tab Metoprolol Tartrate [Lopressor] 25 mg PO BID Discharge Medication List Atorvastatin [Lipitor] 80 mg PO HS #30 tab 10/31/13 [Rx] Nitroglycerin Sl Tabs [Nitrostat] 0.4 mg SUBLINGUAL Q5M PRN #20 tab 10/31/13 [Rx] lisinopriL [Zestril] 5 mg PO DAILY 08/02/20 [History] Aspirin 81 mg PO DAILY chew 08/05/20 [Rx] Metoprolol Tartrate [Lopressor] 25 mg PO HS 30 Days #30 tab 08/05/20 [Rx] Metoprolol Tartrate [Lopressor] 50 mg PO DAILY 30 Days #30 tab 08/05/20 [Rx] Follow up Appointment(s)/Referral(s): Tl Springer MD [STAFF PHYSICIAN] - 08/17/20 8:30 am Gloria Bella MD [Primary Care Provider] - 1-2 Days Patient Instructions/Handouts: *Surgery [facility] - After Heart Catheterization - Database Modeler Instructions Activity/Diet/Wound Care/Special Instructions: Activity Limited until follow-up Follow-up with primary care provider upon discharge Follow-up with cardiology as discussed and scheduled Take medications as prescribed Avoid tobacco use Continue with heart healthy cardiac diet Discharge Disposition: HOME SELF-CARE
== END 2020-08-05 11:12 | disposition home or self-care (01) | DRG 287 ==
LOC: EC 19:35 → 6NMEDSUR 21:51 → OBSVTOIN 08-04 07:22 → 6NMEDSUR 08-04 22:11
PROVIDERS: ADMIT Internal Medicine; ATTEND Internal Medicine
PROC: B2151ZZ Fluoroscopy of Left Heart using Low Osmolar Contrast (ICD-10-PCS; principal; 2020-08-04 08:30)
PROC: 4A023N7 Measurement of Cardiac Sampling and Pressure, Left Heart, Percutaneous Approach (ICD-10-PCS; principal; 2020-08-04 08:30)
PROC: B2111ZZ Fluoroscopy of Multiple Coronary Arteries using Low Osmolar Contrast (ICD-10-PCS; principal; 2020-08-04 08:30)
DX: I25.10 Atherosclerotic heart disease of native coronary artery without angina pectoris (principal); E78.5 Hyperlipidemia, unspecified; Z71.6 Tobacco abuse counseling; F17.210 Nicotine dependence, cigarettes, uncomplicated; I10 Essential (primary) hypertension; I25.2 Old myocardial infarction; Z20.822 Contact with and (suspected) exposure to COVID-19; Z79.82 Long term (current) use of aspirin; Z79.899 Other long term (current) drug therapy; Z82.49 Family history of ischemic heart disease and other diseases of the circulatory system; Z95.5 Presence of coronary angioplasty implant and graft
CPT/HCPCS: 36415; 71046; 76705; 78452; 80048; 80053; 80061; 83690; 83735; 83880; 84484; 85025; 85610; 85730; 87635; 93005; 93017; 93306; 93458; 96374; 99285

== ENCOUNTER 2020-08-23 18:21 | Observation (INO) | payer MEDICARE, OTHER ==
[2020-08-23 18:55] LABS: Basophils # (A) 0.1 k/uL (0-0.2); Basophils % (A) 1 %; Eosinophils # (A) 0.3 k/uL (0-0.7); Eosinophils % (A) 3 %; HCT 42.2 % (39.0-53.0); HGB 15.1 gm/dL (13.0-17.5); Lymphocytes # (A) 1.4 k/uL (1.0-4.8); Lymphocytes % (A) 16 %; MCH 32.8 pg (25.0-35.0); MCHC 35.8 g/dL (31.0-37.0); MCV 91.6 fL (80.0-100.0); Mean Platelet Volume 7.3; Monocytes # (A) 0.4 k/uL (0-1.0); Monocytes % (A) 4 %; Neutrophils # (A) 6.8 k/uL (1.3-7.7); Neutrophils % (A) 76 %; Platelet Count 191 k/uL (150-450); RDW 12.7 % (11.5-15.5); WBC 8.9 k/uL (3.8-10.6)
[2020-08-23 19:05] LABS: Prothrombin Time 10.4 sec (9.0-12.0)
[2020-08-23 19:07] LABS: Albumin 3.8 g/dL (3.5-5.0); Calcium 9.5 mg/dL (8.4-10.2); Magnesium 2.3 mg/dL (1.6-2.3); Potassium 4.5 mmol/L (3.5-5.1); Total Bilirubin 0.4 mg/dL (0.2-1.3); Total Protein 6.6 g/dL (6.3-8.2)
[2020-08-23 19:13] LABS: Partial Thromboplastin Time 21.7 sec (22.0-30.0)
--- NOTE | 2020-08-23 19:18 | XR ---
EXAMINATION TYPE: XR chest 2V DATE OF EXAM: 08/23/2020 COMPARISON: 08/02/2020. HISTORY: Chest pain. TECHNIQUE: Frontal and lateral views of the chest are obtained. FINDINGS: There is no focal air space opacity, pleural effusion, or pneumothorax seen. The cardiac silhouette size is within normal limits. The osseous structures are intact. Bilateral nipple shadow s seen. IMPRESSION: No acute cardiopulmonary process.
--- NOTE | 2020-08-23 19:52 | ED ---
General Adult HPI - General Chief complaint: Chest Pain Stated complaint: Chest Pain Source: patient, EMS Mode of arrival: EMS Limitations: no limitations - History of Present Illness Initial comments: The patient is a 70-year-old male past medical history of coronary disease who presents emergency Department with reported chest pain. 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 States that it is epigastric and radiates around to his back. Reports that the pain is extremely similar to when he had stents placed 3 weeks ago. Patient has been taking his medications as directed. Denies any shortness of breath. Did take 3 nitros at home and reports to improvement in his symptoms. No fevers or chills. Denies cough. No other alleviating, precipitating or modifying factors - Related Data Home Medications Medication Instructions Recorded Confirmed lisinopriL [Zestril] 5 mg PO DAILY 08/02/20 08/23/20 Meloxicam [Mobic] 7.5 mg PO BID 08/23/20 08/23/20 Nitroglycerin Sl Tabs [Nitrostat] 0.4 mg SL Q5M PRN 08/23/20 08/23/20 Previous Rx's Medication Instructions Recorded Atorvastatin [Lipitor] 80 mg PO HS #30 tab 10/31/13 Aspirin 81 mg PO DAILY chew 08/05/20 Metoprolol Tartrate [Lopressor] 25 mg PO HS 30 Days #30 tab 08/05/20 Metoprolol Tartrate [Lopressor] 50 mg PO DAILY 30 Days #30 tab 08/05/20 Allergies Allergy/AdvReac Type Severity Reaction Status Date / Time No Known Allergies Allergy Verified 08/23/20 18:31 Review of Systems ROS Statement: Those systems with pertinent positive or pertinent negative responses have been documented in the HPI. ROS Other: All systems not noted in ROS Statement are negative. Past Medical History Past Medical History: Myocardial Infarction ([place]) Last Myocardial Infarction Date:: 10-28-2013 History of Any Multi-Drug Resistant Organisms: None Reported Past Surgical History: Heart Catheterization With Stent, Hernia Repair, Orthopedic Surgery Additional Past Surgical History / Comment(s): inguinal Past Anesthesia/Blood Transfusion Reactions: No Reported Reaction Date of Last Stent Placement:: 2015 Past Psychological History: No Psychological Hx Reported Smoking Status: Current every day smoker Past Alcohol Use History: None Reported Past Drug Use History: None Reported - Past Family History Father Family Medical History: Myocardial Infarction ([place]) Mother Family Medical History: Myocardial Infarction ([place]) General Exam Limitations: no limitations Course Vital Signs 08/23/20 08/23/20 18:31 21:01 Temperature 98.3 F 97.6 F Pulse Rate 73 68 Respiratory 18 18 Rate Blood Pressure 137/81 120/76 O2 Sat by Pulse 97 95 Oximetry EKG Findings - EKG Comments: EKG Findings:: EKG demonstrates normal sinus rhythm with a ventricular rate of 69. ID interval 184. QRS 82. QTC of 390. No acute ST segment elevations or depressions Medical Decision Making - Medical Decision Making Upon arrival patient was placed in room 6. Thorough history and physical exam was performed. IV is established. Patient is pain-free at this time. Laboratory studies were conducted and demonstrate a negative troponin. Chest x- rays performed which demonstrates no acute crit department process. As the patient recently just had 3 stents placed did recommend admission. Spoke with Dr. York who agreed to admit the patient. Patient is currently awaiting a bed on the floor - Lab Data Result diagrams: 08/23/20 18:47 08/23/20 18:47 Lab Results 08/23/20 08/23/20 08/23/20 Range/Units 18:47 18:47 18:47 WBC 8.9 (3.8-10.6) k/uL RBC 4.60 (4.30-5.90) m/uL Hgb 15.1 (13.0-17.5) gm/dL Hct 42.2 (39.0-53.0) % MCV 91.6 (80.0-100.0) fL MCH 32.8 (25.0-35.0) pg MCHC 35.8 (31.0-37.0) g/dL RDW 12.7 (11.5-15.5) % Plt Count 191 (150-450) k/uL MPV 7.3 Neutrophils % 76 % Lymphocytes % 16 % Monocytes % 4 % Eosinophils % 3 % Basophils % 1 % Neutrophils # 6.8 (1.3-7.7) k/uL Lymphocytes # 1.4 (1.0-4.8) k/uL Monocytes # 0.4 (0-1.0) k/uL Eosinophils # 0.3 (0-0.7) k/uL Basophils # 0.1 (0-0.2) k/uL PT 10.4 (9.0-12.0) sec INR 1.0 (<1.2) APTT 21.7 L (22.0-30.0) sec Sodium 141 (137-145) mmol/L Potassium 4.5 (3.5-5.1) mmol/L Chloride 109 H (98-107) mmol/L Carbon Dioxide 28 (22-30) mmol/L Anion Gap 4 mmol/L BUN 14 (9-20) mg/dL Creatinine 1.02 (0.66-1.25) mg/dL Est GFR (CKD-EPI)AfAm 86 (>60 ml/min/1.73 sqM) Est GFR (CKD-EPI)NonAf 74 (>60 ml/min/1.73 sqM) Glucose 109 H (74-99) mg/dL Calcium 9.5 (8.4-10.2) mg/dL Magnesium 2.3 (1.6-2.3) mg/dL Total Bilirubin 0.4 (0.2-1.3) mg/dL AST 20 (17-59) U/L ALT 18 (4-49) U/L Alkaline Phosphatase 110 (38-126) U/L Troponin I (0.000-0.034) ng/mL NT-Pro-B Natriuret Pep pg/mL Total Protein 6.6 (6.3-8.2) g/dL Albumin 3.8 (3.5-5.0) g/dL 08/23/20 08/23/20 Range/Units 18:47 18:47 WBC (3.8-10.6) k/uL RBC (4.30-5.90) m/uL Hgb (13.0-17.5) gm/dL Hct (39.0-53.0) % MCV (80.0-100.0) fL MCH (25.0-35.0) pg MCHC (31.0-37.0) g/dL RDW (11.5-15.5) % Plt Count (150-450) k/uL MPV Neutrophils % % Lymphocytes % % Monocytes % % Eosinophils % % Basophils % % Neutrophils # (1.3-7.7) k/uL Lymphocytes # (1.0-4.8) k/uL Monocytes # (0-1.0) k/uL Eosinophils # (0-0.7) k/uL Basophils # (0-0.2) k/uL PT (9.0-12.0) sec INR (<1.2) APTT (22.0-30.0) sec Sodium (137-145) mmol/L Potassium (3.5-5.1) mmol/L Chloride (98-107) mmol/L Carbon Dioxide (22-30) mmol/L Anion Gap mmol/L BUN (9-20) mg/dL Creatinine (0.66-1.25) mg/dL Est GFR (CKD-EPI)AfAm (>60 ml/min/1.73 sqM) Est GFR (CKD-EPI)NonAf (>60 ml/min/1.73 sqM) Glucose (74-99) mg/dL Calcium (8.4-10.2) mg/dL Magnesium (1.6-2.3) mg/dL Total Bilirubin (0.2-1.3) mg/dL AST (17-59) U/L ALT (4-49) U/L Alkaline Phosphatase (38-126) U/L Troponin I <0.012 (0.000-0.034) ng/mL NT-Pro-B Natriuret Pep 439 pg/mL Total Protein (6.3-8.2) g/dL Albumin (3.5-5.0) g/dL Disposition Clinical Impression: Chest pain, Coronary artery disease Disposition: ADMITTED IP TO THIS [facility] Condition: Stable Is patient prescribed a controlled substance at d/c from ED?: No Decision to Admit Reason: Admit from EC Decision Date: 08/23/20 Decision Time: 20:02
[2020-08-23] MEDS ORDERED: NALOXONE 0.4 MG/ML 1 ML VIAL IV PRN (20:02)
[2020-08-23] MEDS ORDERED: METOPROLOL TARTRATE 25 MG TAB PO SCH (21:30)
[2020-08-23] MEDS ORDERED: ASPIRIN 81 MG PO SCH (21:30)
--- NOTE | 2020-08-23 22:24 | P.HPIM ---
History of Present Illness H&P Date: 08/23/20 Chief Complaint: chest pain 70 year old male with history of CAD, hyperlipidemia, tobacco smoking, hypertension Patient comes in due to recurrent episodes of chest pain happening even at rest, this time pain started at 4:30 in the morning was worse than what he has been experiencing over the past couple days. Described the pain as pressure like pressure sensation over the mid lower chest radiating to the upper abdomen wrapping around not associated with any dizziness lightheadedness nausea or vomiting no associated shortness of breath or diaphoresis. However pain was responding to repeated doses of nitro and sometimes Maalox as he is was feeling gassy. He denies any GI bleeding. Patient was hospitalized around August 04 for same complaint of chest pain he claims that it was exactly same presentation. At that time his stress test was positive he had left heart cath done, he thought that he had stents placed however upon reviewing the cardiac cath report looks like cardiology recommended maximal medical management with no stent inserted. At that time patient was not discharged on any Plavix he was only on statin and aspirin metoprolol and lisinopril Otherwise patient has no complains of GI bleeding no fevers or chills no coughing no respiratory symptoms. He denies any diarrhea or GI bleeding he denies any urinary changes In the ED blood work and EKG showed no acute changes patient was admitted for cardiac workup for his chest pain Review of Systems Pertinent positives as noted in HPI. All other systems were reviewed and are negative Past Medical History Past Medical History: Myocardial Infarction ([place]) Last Myocardial Infarction Date:: 10-28-2013 History of Any Multi-Drug Resistant Organisms: None Reported Past Surgical History: Heart Catheterization With Stent, Hernia Repair, Orthopedic Surgery Additional Past Surgical History / Comment(s): inguinal Past Anesthesia/Blood Transfusion Reactions: No Reported Reaction Date of Last Stent Placement:: 2015 Past Psychological History: No Psychological Hx Reported Smoking Status: Current every day smoker Past Alcohol Use History: None Reported Past Drug Use History: None Reported - Past Family History Father Family Medical History: Myocardial Infarction ([place]) Mother Family Medical History: Myocardial Infarction ([place]) Medications and Allergies Home Medications Medication Instructions Recorded Confirmed Type Atorvastatin [Lipitor] 80 mg PO HS #30 tab 10/31/13 08/23/20 Rx lisinopriL [Zestril] 5 mg PO DAILY 08/02/20 08/23/20 History Aspirin 81 mg PO DAILY chew 08/05/20 08/23/20 Rx Metoprolol Tartrate [Lopressor] 25 mg PO HS 30 Days #30 tab 08/05/20 08/23/20 Rx Metoprolol Tartrate [Lopressor] 50 mg PO DAILY 30 Days #30 tab 08/05/20 08/23/20 Rx Meloxicam [Mobic] 7.5 mg PO BID 08/23/20 08/23/20 History Nitroglycerin Sl Tabs [Nitrostat] 0.4 mg SL Q5M PRN 08/23/20 08/23/20 History Allergies Allergy/AdvReac Type Severity Reaction Status Date / Time No Known Allergies Allergy Verified 08/23/20 18:31 Physical Exam Vitals: Vital Signs Temp Pulse Pulse Resp BP BP Pulse Ox 08/23/20 21:32 97.5 F L 74 16 146/76 98 08/23/20 21:01 97.6 F 68 18 120/76 95 08/23/20 18:31 98.3 F 73 18 137/81 97 Intake and Output 08/23/20 08/23/20 08/23/20 06:59 14:59 22:59 Other: Weight 67.132 kg Constitutional: No acute distress, conversant, pleasant Eyes: Anicteric sclerae, moist conjunctiva, Pupils equal round reactive to light ENMT: NC/AT Oropharynx clear, no erythema, or exudates Neck: Supple, FROM, no masses, or JVD No carotid bruits No thyromegaly Lungs: Clear to auscultation Clear to percussion Normal respiratory effort, no accessory muscle use Cardiovascular: Heart regular in rate and rhythm, No murmurs, gallops, or rubs No peripheral edema Abdominal: Soft Nontender, no guarding, rebound or rigidity Abdomen moving with respiration Normoactive bowel sounds No hepatomegaly, No splenomegaly No palpable mass No abdominal wall hernia noted Skin: Normal temperature, tone, texture, turgor No induration No subcutaneous nodules No rash, lesions No ulcers Extremities: No digital cyanosis No clubbing Pedal pulses intact and symmetrical Radial pulses intact and symmetrical No calf tenderness Psychiatric: Alert and oriented to person, place and time Appropriate affect fair judgement Neuro Muscles Strength 5/5 in all 4 extremities Sensation to light touch grossly present throughout Cranial nerves II-XII grossly intact No focal sensory deficits Lymphatics: no palpable cervical or supraclavicular , or inguinal lymph nodes Results CBC & Chem 7: 08/23/20 18:47 08/23/20 18:47 Labs: Abnormal Lab Results - Last 24 Hours (Table) 08/23/20 08/23/20 Range/Units 18:47 18:47 APTT 21.7 L (22.0-30.0) sec Chloride 109 H (98-107) mmol/L Glucose 109 H (74-99) mg/dL Assessment and Plan Assessment: Atypical chest pain History of coronary artery disease Plan Cardiac monitoring Trend troponins Continue home medications aspirin and statin lisinopril and metoprolol Cardiology consultation And left heart cath 2 weeks ago cardiology at that time recommended maximal medical therapy Pain control Chronic conditions Current artery disease Hypertension Hyperlipidemia Tobacco smoking Resume home medications Patient counseled to quit smoking Patient is full code DVT prophylaxis on heparin subcu 3 times a day Anticipated length of stay less than 2 midnights Anticipated discharge to home
[2020-08-24] MEDS: PANTOPRAZOLE 40 MG TABLET PO SCH ×2 (00:34→09:31)
[2020-08-24] MEDS: HEPARIN SODIUM,PORCINE/PF 5,000 UNIT/0.5 ML SYRINGE SQ SCH ×2 (00:34→09:25)
[2020-08-24 05:53] LABS: African American GFR (CKD) >90 (>60 ml/min/1.73 sqM); Anion Gap 6 mmol/L; Blood Urea Nitrogen 12 mg/dL (9-20); Calcium 9.2 mg/dL (8.4-10.2); Carbon Dioxide 27 mmol/L (22-30); Chloride 108 mmol/L (98-107); Glucose 96 mg/dL (74-99); Non-African American GFR(CKD) 79 (>60 ml/min/1.73 sqM); Potassium 3.9 mmol/L (3.5-5.1); Sodium 141 mmol/L (137-145)
[2020-08-24] MEDS ORDERED: lisinopriL 5 MG TAB PO SCH (09:00)
[2020-08-24] MEDS ORDERED: MELOXICAM 7.5 MG TAB PO SCH (09:00)
[2020-08-24] MEDS ORDERED: ISOSORBIDE MONONITRATE ER 30 MG TAB.ER.24H PO SCH (09:00)
[2020-08-24] MEDS ORDERED: METOPROLOL TARTRATE 50 MG TAB PO SCH (09:00)
[2020-08-24 09:22] LABS: Basophils # (A) 0.06 X 10*3/uL (0.00-0.10); Basophils % (A) 0.6 %; Eosinophils # (A) 0.28 X 10*3/uL (0.04-0.35); Eosinophils % (A) 2.8 %; HCT 41.3 % (39.6-50.0); HGB 13.9 g/dL (13.0-17.0); Lymphocytes # (A) 2.01 X 10*3/uL (0.90-5.00); Lymphocytes % (A) 20.3 %; MCH 31.4 pg (27.0-32.0); MCHC 33.7 g/dL (32.0-37.0); MCV 93.4 fL (80.0-97.0); Mean Platelet Volume 10.6 fL (9.5-12.2); Monocytes # (A) 0.52 X 10*3/uL (0.20-1.00); Monocytes % (A) 5.3 %; Neutrophils # (A) 6.99 X 10*3/uL (1.80-7.70); Neutrophils % (A) 70.7 %; Platelet Count 186 X 10*3/uL (140-440); RBC 4.42 X 10*6/uL (4.40-5.60); RDW 12.5 % (11.5-14.5); WBC 9.89 X 10*3/uL (4.50-10.00)
--- NOTE | 2020-08-24 10:35 | CONS ---
STEW Salazar is a 70-year-old gentleman with history of coronary artery disease, status post prior angioplasty of PDA and PLV, who presented to hospital with chest pain and underwent a stress test that showed a partially reversible improved lateral defect for which he underwent cardiac catheterization and was advised medical therapy on August 04, 2020. He was discharged home and came back to the hospital obtain complaining of chest discomfort. It is sharp, precordial unrelated to exertion and associated with diaphoresis. It seems to be more in the epigastric discomfort related to eating than chest pain. At the time of my evaluation this morning, he is chest pain free, hemodynamically stable and in no apparent distress. An EKG shows normal sinus rhythm. His 3 sets of troponins are negative. COVID is negative. Creatinine is normal. Potassium is 3.9. PAST MEDICAL HISTORY: Significant for coronary artery disease, status post angioplasty, hypertension, dyslipidemia. MEDICATIONS: Medications at home included Zestril 5 q. daily, Lopressor, Mobic, Lipitor 80 q. daily and aspirin. ALLERGIES: There are no known drug allergies. FAMILY HISTORY: Negative for premature coronary artery disease. SOCIAL HISTORY: Negative for current smoking, EtOH abuse, or drug abuse. REVIEW OF SYSTEMS: HEENT is unremarkable. CARDIAC: As described above. RESPIRATORY: As described above. GI: Negative. GENITOURINARY: Negative. ALLERGY/IMMUNOLOGY: Negative. SKIN: Negative. MUSCULOSKELETAL: Negative. ENDOCRINE: Negative. DERM: Negative. CONSTITUTIONAL: Negative. ONCOLOGICAL: Negative. PAVING MACHINE OPERATOR: Negative. Rest of the system review is not relevant. PHYSICAL EXAMINATION: On exam, comfortable at rest. Vital signs are stable. There is no jugular venous distention. Carotid upstroke is normal. There is no bruit. Chest exam reveals good air entry bilaterally. Heart exam reveals first and second heart sounds. No gallop. No murmur. No rub. Abdomen is soft, nontender. Examination of extremities did not reveal any edema. Peripheral pulses are felt. An echocardiogram recently showed normal LV function and was within normal limits. EKG on this admission was within normal limits. Cardiac enzymes are negative. I reviewed recent angiographic data. The patient has a lesion within a nondominant circumflex coronary artery for which she was advised medical therapy. Nuclear stress test abnormality was thought not to show any ischemia and he had a distal left main stenosis that was not significant. ASSESSMENT: 1. Precordial chest pain. 2. Known coronary artery disease, status post prior angioplasty with recent cardiac catheterization. I advised the patient medical therapy with aspirin, Lipitor, Lopressor and I am adding Imdur 30 mg daily. We will ambulate him and see how he does. Hopefully, home tomorrow. DEO / KRISTIN: [id number] /
--- NOTE | 2020-08-24 11:22 | P.PN ---
Subjective Progress Note Date: 08/24/20 Patient is doing fairly well today. He denies any chest pain. No acute events overnight reported by nursing staff. Objective - Vital Signs Vital signs: Vital Signs Temp 98.7 F 08/24/20 07:30 Pulse 83 08/24/20 07:30 Resp 20 08/24/20 07:30 BP 121/61 08/24/20 07:30 Pulse Ox 93 L 08/24/20 07:30 Intake & Output 08/23/20 08/24/20 08/24/20 18:59 06:59 18:59 Weight 67.132 kg 67.132 kg Other: # Voids 1 - Exam General: The patient is awake and alert, in no distress Eye: there is normal conjunctiva bilaterally. Neck: The neck is supple, there is no JVD. Cardiovascular: Normal S1-S2, no S3-S4, no murmurs. Respiratory: Lungs clear to auscultation bilaterally Gastrointestinal: Abdomen is soft, nontender Musculoskeletal: There is no pedal edema. Neurological:. Speech is normal. Skin: Skin is warm and dry - Labs CBC & Chem 7: 08/24/20 04:35 08/24/20 04:35 Labs: Abnormal Lab Results - Last 24 Hours (Table) 08/23/20 08/23/20 08/24/20 Range/Units 18:47 18:47 04:35 APTT 21.7 L (22.0-30.0) sec Chloride 109 H 108 H (98-107) mmol/L Glucose 109 H (74-99) mg/dL Assessment and Plan Assessment: This is a 70-year-old male with past medical history noted below significant for underlying coronary artery disease who presented to the emergency room with chest pain. Patient was evaluated in the ER and placed on observation for further management of his medical problems noted below. 1. Chest pain, ACS ruled out. Serial troponin negative. Twelve-lead EKG with no acute ischemic changes. Patient was seen and evaluated by cardiology. Imdur added to his regimen. 2. Nonobstructive coronary artery disease. Patient had a left heart catheterization on 08/03. Advised to maximize medical management. 3. Chronic medical problems: Hypertension, hyperlipidemia Encouraged ambulation. Continue telemetry monitoring. Anticipate discharge home tomorrow when cleared by cardiology.
--- NOTE | 2020-08-24 13:46 | P.DS ---
Providers Date of admission: 08/23/20 20:02 Expected date of discharge: 08/24/20 Attending physician: Emelyn Christiansen MD Consults: 08/23/20 20:03 Consult Physician Urgent Consulting Provider: [facility] Consult Reason/Comments: acute chest pain, possible acs, recent stent placement Do you want consulting provider notified?: Yes Primary care physician: [facility] Course: This is a 70-year-old male with past medical history noted below significant for underlying coronary artery disease who presented to the emergency room with chest pain. Patient was evaluated in the ER and placed on observation for further management of his medical problems noted below. 1. Chest pain, ACS ruled out. Serial troponin negative. Twelve-lead EKG with no acute ischemic changes. Patient was seen and evaluated by cardiology. Imdur added to his regimen. 2. Nonobstructive coronary artery disease. Patient had a left heart catheterization on 08/03. Advised to maximize medical management. 3. Chronic medical problems: Hypertension, hyperlipidemia Patient was reevaluated this afternoon. He was up and ambulating the hallway with no difficulty. No chest pain. Dr. Lai contacted by nursing staff and cleared the patient to be discharged home. Follow-up in the office as directed. Patient Condition at Discharge: Stable Plan - Discharge Summary Discharge Rx Participant: No New Discharge Prescriptions: New Isosorbide Mononitrate ER [Imdur] 30 mg PO DAILY #30 tab.er.24h Continue Atorvastatin [Lipitor] 80 mg PO HS #30 tab lisinopriL [Zestril] 5 mg PO DAILY Aspirin 81 mg PO DAILY chew Metoprolol Tartrate [Lopressor] 50 mg PO DAILY 30 Days #30 tab Meloxicam [Mobic] 7.5 mg PO BID Nitroglycerin Sl Tabs [Nitrostat] 0.4 mg SL Q5M PRN PRN Reason: Chest Pain Metoprolol Tartrate [Lopressor] 25 mg PO HS 30 Days #30 tab Discharge Medication List Atorvastatin [Lipitor] 80 mg PO HS #30 tab 10/31/13 [Rx] lisinopriL [Zestril] 5 mg PO DAILY 08/02/20 [History] Aspirin 81 mg PO DAILY chew 08/05/20 [Rx] Metoprolol Tartrate [Lopressor] 25 mg PO HS 30 Days #30 tab 08/05/20 [Rx] Metoprolol Tartrate [Lopressor] 50 mg PO DAILY 30 Days #30 tab 08/05/20 [Rx] Meloxicam [Mobic] 7.5 mg PO BID 08/23/20 [History] Nitroglycerin Sl Tabs [Nitrostat] 0.4 mg SL Q5M PRN 08/23/20 [History] Isosorbide Mononitrate ER [Imdur] 30 mg PO DAILY #30 tab.er.24h 08/24/20 [Rx] Follow up Appointment(s)/Referral(s): Gloria Bella MD [Primary Care Provider] - 1-2 days Discharge Disposition: HOME SELF-CARE
[2020-08-24 14:39] VITALS: BP 106/48; PULSE 65; RESP 18; TEMP 97.5
[2020-08-24] MEDS ORDERED: ATORVASTATIN 80 MG TAB PO SCH (21:00)
== END 2020-08-24 14:47 | disposition home or self-care (01) ==
LOC: EC 18:21 → 6NMEDSUR 20:02
PROVIDERS: ADMIT Internal Medicine; ATTEND Internal Medicine
DX: R07.89 Other chest pain (principal); R07.2 Precordial pain; R10.13 Epigastric pain; R61 Generalized hyperhidrosis; I25.10 Atherosclerotic heart disease of native coronary artery without angina pectoris; I25.2 Old myocardial infarction; E78.5 Hyperlipidemia, unspecified; I10 Essential (primary) hypertension; F17.200 Nicotine dependence, unspecified, uncomplicated; Z95.5 Presence of coronary angioplasty implant and graft; Z20.822 Contact with and (suspected) exposure to COVID-19; Z79.899 Other long term (current) drug therapy; Z79.1 Long term (current) use of non-steroidal anti-inflammatories (NSAID); Z79.82 Long term (current) use of aspirin; Z82.49 Family history of ischemic heart disease and other diseases of the circulatory system
CPT/HCPCS: 96372; 99285; 36415; 93005; 83880; 80053; 80048; 83735; 84484; 85025 ×2; 85610; 85730; 87635; 71046; G0378 ×2; J1644

== ENCOUNTER 2020-09-06 20:49 | Emergency (ER) | payer MEDICARE, OTHER ==
[2020-09-06] MEDS ORDERED: KETOROLAC 15 MG/ML 1 ML VIAL IM STA (21:28)
--- NOTE | 2020-09-06 21:53 | XR ---
EXAMINATION TYPE: XR Hip LT and AP Pelvis DATE OF EXAM: 09/06/2020 COMPARISON: NONE HISTORY: Hip pain TECHNIQUE: 3 views FINDINGS: The pelvic ring is intact. Proximal left femur and hip joint appear normal. There is no hip dysplasia. Sacroiliac joints are intact. IMPRESSION: Normal pelvis and left hip exam.
--- NOTE | 2020-09-06 21:54 | XR ---
EXAMINATION TYPE: XR lumbar spine 2 or 3V DATE OF EXAM: 09/06/2020 COMPARISON: NONE HISTORY: Back pain TECHNIQUE: 3 views FINDINGS: The lumbar vertebra have normal alignment. Posterior elements are intact. There is no compr ession fracture. Disc spaces are fairly normal. Sacroiliac joints are intact. IMPRESSION: Negative lumbar spine exam. No fracture.
--- NOTE | 2020-09-06 21:57 | XR ---
EXAMINATION TYPE: XR ribs LT w pa chest xray DATE OF EXAM: 09/06/2020 COMPARISON: 08/23/2020 HISTORY: Rib pain TECHNIQUE: 5 views FINDINGS: Heart and mediastinum are normal. Lungs are clear. Diaphragm is normal. Bony thorax is inta ct. There are no hilar masses. IMPRESSION: No active cardiopulmonary disease. Normal heart. No evidence of rib fracture. No change compared to old exam.
--- NOTE | 2020-09-06 22:07 | ED ---
General Adult HPI - General Chief complaint: Back Pain/Injury Stated complaint: L Leg Pain Time Seen by Provider: 09/06/20 21:04 Source: patient Mode of arrival: ambulatory Limitations: no limitations - History of Present Illness Initial comments: 70-year-old male with a past medical history of AL, orthopedic surgery, hernia repair presents to the emergency room for left side hip and leg pain. Patient reports that he has had this before in the past. States that he was painting his bedroom today. He went and stepped down from a stepladder and suddenly had pain. States it is in his left side left hip and left leg. States it feels better when he crosses his legs and worse with movement. States it radiates down the leg. No low back pain. No bladder or bowel changes. No saddle anesthesia. No weakness of the legs. Patient can ambulate but does have pain with bearing weight on the left leg.Patient has no other complaints at this time including shortness of breath, chest pain, abdominal pain, nausea or vomiting, headache, or visual changes. - Related Data Home Medications Medication Instructions Recorded Confirmed lisinopriL [Zestril] 5 mg PO DAILY 08/02/20 08/23/20 Meloxicam [Mobic] 7.5 mg PO BID 08/23/20 08/23/20 Nitroglycerin Sl Tabs [Nitrostat] 0.4 mg SL Q5M PRN 08/23/20 08/23/20 Previous Rx's Medication Instructions Recorded Atorvastatin [Lipitor] 80 mg PO HS #30 tab 10/31/13 Aspirin 81 mg PO DAILY chew 08/05/20 Metoprolol Tartrate [Lopressor] 25 mg PO HS 30 Days #30 tab 08/05/20 Metoprolol Tartrate [Lopressor] 50 mg PO DAILY 30 Days #30 tab 08/05/20 Isosorbide Mononitrate ER [Imdur] 30 mg PO DAILY #30 tab.er.24h 08/24/20 Allergies Allergy/AdvReac Type Severity Reaction Status Date / Time No Known Allergies Allergy Verified 09/06/20 21:03 Review of Systems ROS Statement: Those systems with pertinent positive or pertinent negative responses have been documented in the HPI. ROS Other: All systems not noted in ROS Statement are negative. Past Medical History Past Medical History: [place]ocardial Infarction ([place]) Last Myocardial Infarction Date:: 10-28-2013 History of Any Multi-Drug Resistant Organisms: None Reported Past Surgical History: Heart Catheterization With Stent, Hernia Repair, Orthopedic Surgery Additional Past Surgical History / Comment(s): inguinal Past Anesthesia/Blood Transfusion Reactions: No Reported Reaction Date of Last Stent Placement:: 2015 Past Psychological History: No Psychological Hx Reported Smoking Status: Current every day smoker Past Alcohol Use History: None Reported Past Drug Use History: None Reported - Past Family History Father Family Medical History: [place]ocardial Infarction ([place]) Mother Family Medical History: Myocardial Infarction ([place]) General Exam Limitations: no limitations General appearance: alert, in no apparent distress Head exam: Present: atraumatic, normocephalic, normal inspection Eye exam: Present: normal appearance, PERRL, EOMI. Absent: scleral icterus, conjunctival injection, periorbital swelling ENT exam: Present: normal exam, mucous membranes moist Neck exam: Present: normal inspection. Absent: tenderness, meningismus, lymphadenopathy Respiratory exam: Present: normal lung sounds bilaterally, chest wall tenderness (Patient does have some mild left-sided lateral lower rib tenderness.). Absent: respiratory distress, wheezes, rales, rhonchi, stridor Cardiovascular Exam: Present: regular rate, normal rhythm, normal heart sounds. Absent: systolic murmur, diastolic murmur, rubs, gallop, clicks GI/Abdominal exam: Present: soft, normal bowel sounds. Absent: distended, tenderness (No abdominal tenderness), guarding, rebound, rigid Extremities exam: Present: tenderness (Tenderness of the left hip area.), normal capillary refill (Capillary refill less than 2 seconds, DP pulse 2+ left lower extremity.), other (DP pulse 2+. Capillary refill less than 2 seconds. Positive straight leg raise test.). Absent: full ROM (Patient able to flex at the knee to about 90 which does elicit pain in the hip.) Back exam: Absent: vertebral tenderness Neurological exam: Present: alert Course Vital Signs 09/06/20 21:01 Temperature 98.4 F Pulse Rate 87 Respiratory 16 Rate Blood Pressure 137/64 O2 Sat by Pulse 98 Oximetry Medical Decision Making - Medical Decision Making Vitals are stable. Patient is well-appearing. To the lateral ribs however no abdominal tenderness whatsoever. No lumbar spine tenderness. mild left hip tenderness. Limited range of motion. Movement does elicit pain. Neurovascular status intact left lower extremity. X-ray of the hip and pelvis are normal. Negative lumbar spine exam. X-ray of the left side of the ribs shows no rib fracture. Normal heart. No active cardiopulmonary disease. Patient was given Toradol. He had significant improvement in pain. He is able to stand up, walking around exam room without difficulty. At this time patient's pain is consistent with musculoskeletal pain. He will follow up with primary care. He will return here to the emergency room if he has any worsening symptoms. Otherwise we will send him home with Tylenol 3 which he will take in conjunction with Motrin. Disposition Clinical Impression: Hip pain, left Disposition: HOME SELF-CARE Condition: Good Instructions (If sedation given, give patient instructions): Hip Pain (ED) Additional Instructions: Please take Motrin for pain. If pain is severe take Tylenol [address] operate machinery while taking Tylenol 3. Follow up with primary care. If you're having worsening symptoms return to the emergency room for further evaluation. Is patient prescribed a controlled substance at d/c from ED?: No Referrals: Gloria Bella MD [Primary Care Provider] - 1-2 days Time of Disposition: 22:18
[2020-09-06] MEDS ORDERED: ACET/COD 300 MG/30 MG STARTER PACK 6 TAB BTL PO STA (22:18)
[2020-09-06 22:32] VITALS: BP 135/64; PULSE 84; RESP 18; TEMP 98.5
== END 2020-09-06 22:29 | disposition home or self-care (01) ==
LOC: EC 20:49
DX: M25.552 Pain in left hip (principal); F17.200 Nicotine dependence, unspecified, uncomplicated; I25.2 Old myocardial infarction; Z79.82 Long term (current) use of aspirin
CPT/HCPCS: 71101; 72100; 73502; 99283; 96372; J1885

== ENCOUNTER 2020-09-09 12:04 | Observation (INO) | payer MEDICARE, OTHER ==
[2020-09-09] MEDS ORDERED: SODIUM CHLORIDE 0.9% 500 ML 500 ML IV STA (12:24)
[2020-09-09] MEDS ORDERED: MORPHINE SULFATE 4 MG/ML SYRINGE IV STA (12:24)
--- NOTE | 2020-09-09 12:27 | ED ---
General Adult HPI - General Chief complaint: Abdominal Pain Stated complaint: abdominal pain Time Seen by Provider: 09/09/20 12:17 Source: patient, EMS, RN notes reviewed, old records reviewed Mode of arrival: EMS Limitations: no limitations - History of Present Illness Initial comments: 70-year-old male presenting for evaluation of abdominal pain which is been ongoing for the past 2 weeks, worse over the past 2 days. He does report belching and 2 episodes of vomiting. He believes his pain is related to gas pain. He has not had a bowel movement in the past 48 hours but states he has been passing gas. No fevers. No central chest pain. He had recent heart catheterization within the past 2 months which showed coronary artery disease and the patient is currently under medical management for CAD. He denies any dysuria or hematuria. - Related Data Home Medications Medication Instructions Recorded Confirmed lisinopriL [Zestril] 5 mg PO DAILY 08/02/20 09/09/20 Meloxicam [Mobic] 7.5 mg PO BID 08/23/20 09/09/20 Nitroglycerin Sl Tabs [Nitrostat] 0.4 mg SL Q5M PRN 08/23/20 09/09/20 Metoprolol Tartrate [Lopressor] 50 mg PO BID 09/09/20 09/09/20 Previous Rx's Medication Instructions Recorded Atorvastatin [Lipitor] 80 mg PO HS #30 tab 10/31/13 Aspirin 81 mg PO DAILY chew 08/05/20 Isosorbide Mononitrate ER [Imdur] 30 mg PO DAILY #30 tab.er.24h 08/24/20 Allergies Allergy/AdvReac Type Severity Reaction Status Date / Time No Known Allergies Allergy Verified 09/09/20 14:07 Review of Systems ROS Statement: Those systems with pertinent positive or pertinent negative responses have been documented in the HPI. ROS Other: All systems not noted in ROS Statement are negative. Past Medical History Past Medical History: Hypertension, Myocardial Infarction ([place]) Last Myocardial Infarction Date:: 10-28-2013 History of Any Multi-Drug Resistant Organisms: None Reported Past Surgical History: Heart Catheterization With Stent, Hernia Repair, Orth opedic Surgery Additional Past Surgical History / Comment(s): inguinal Past Anesthesia/Blood Transfusion Reactions: No Reported Reaction Date of Last Stent Placement:: 2015 Past Psychological History: No Psychological Hx Reported Smoking Status: Current every day smoker Past Alcohol Use History: None Reported Past Drug Use History: None Reported - Past Family History Father Family Medical History: Myocardial Infarction ([place]) Mother Family Medical History: Myocardial Infarction ([place]) General Exam Limitations: no limitations General appearance: alert, in no apparent distress Head exam: Present: atraumatic, normocephalic Eye exam: Present: PERRL, EOMI ENT exam: Present: mucous membranes dry Neck exam: Present: normal inspection. Absent: tenderness, meningismus Respiratory exam: Present: normal lung sounds bilaterally. Absent: respiratory distress, wheezes, rales Cardiovascular Exam: Present: regular rate, normal rhythm GI/Abdominal exam: Present: soft, tenderness. Absent: distended, guarding, rebound Extremities exam: Present: normal inspection, normal capillary refill. Absent: pedal edema, calf tenderness Neurological exam: Present: alert, oriented X3, CN II-XII intact. Absent: motor sensory deficit Psychiatric exam: Present: normal affect, normal mood Skin exam: Present: warm, dry, intact. Absent: cyanosis, diaphoretic Course Vital Signs 09/09/20 12:13 Temperature 98.1 F Pulse Rate 66 Respiratory 19 Rate Blood Pressure 170/84 O2 Sat by Pulse 97 Oximetry EKG Findings - EKG Comments: EKG Findings:: EKG: Normal sinus rhythm, low voltage, rate of 67, MS interval 168, QRS duration 86, QTC [address] segment elevation Medical Decision Making - Medical Decision Making 70-year-old male presenting with upper abdominal pain, vomiting. CT of the pelvis obtained, showing a duodenitis, gastritis. Normal CBC, normal CMP. Patient does continue to be symptomatic while emergency department. He started on proton pump inhibitor, will be admitted for symptomatic control. Case discussed with the admitting physician Dr. Lopez, gastroenterology placed on consult. - Lab Data Result diagrams: 09/09/20 12:30 09/09/20 12:29 Lab Results 09/09/20 09/09/20 09/09/20 Range/Units 12:29 12:30 12:30 WBC 7.5 (3.8-10.6) k/uL RBC 4.74 (4.30-5.90) m/uL Hgb 15.0 (13.0-17.5) gm/dL Hct 44.7 (39.0-53.0) % MCV 94.3 (80.0-100.0) fL MCH 31.7 (25.0-35.0) pg MCHC 33.6 (31.0-37.0) g/dL RDW 13.4 (11.5-15.5) % Plt Count 167 (150-450) k/uL MPV 7.6 Neutrophils % 78 % Lymphocytes % 15 % Monocytes % 4 % Eosinophils % 2 % Basophils % 0 % Neutrophils # 5.9 (1.3-7.7) k/uL Lymphocytes # 1.2 (1.0-4.8) k/uL Monocytes # 0.3 (0-1.0) k/uL Eosinophils # 0.1 (0-0.7) k/uL Basophils # 0.0 (0-0.2) k/uL PT 10.7 (9.0-12.0) sec INR 1.0 (<1.2) APTT 22.2 (22.0-30.0) sec Sodium 141 (137-145) mmol/L Potassium 3.9 (3.5-5.1) mmol/L Chloride 111 H (98-107) mmol/L Carbon Dioxide 23 (22-30) mmol/L Anion Gap 7 mmol/L BUN 11 (9-20) mg/dL Creatinine 1.05 (0.66-1.25) mg/dL Est GFR (CKD-EPI)AfAm 83 (>60 ml/min/1.73 sqM) Est GFR (CKD-EPI)NonAf 72 (>60 ml/min/1.73 sqM) Glucose 115 H (74-99) mg/dL Plasma Lactic Acid Renzo (0.7-2.0) mmol/L Calcium 9.3 (8.4-10.2) mg/dL Total Bilirubin 0.6 (0.2-1.3) mg/dL AST 18 (17-59) U/L ALT 13 (4-49) U/L Alkaline Phosphatase 117 (38-126) U/L Total Protein 6.5 (6.3-8.2) g/dL Albumin 3.8 (3.5-5.0) g/dL Amylase 63 (30-110) U/L Lipase 61 (23-300) U/L Urine Color Urine Appearance (Clear) Urine pH (5.0-8.0) Ur Specific [place] (1.001-1.035) Urine Protein (Negative) Urine Glucose (UA) (Negative) Urine Ketones (Negative) Urine Blood (Negative) Urine Nitrite (Negative) Urine Bilirubin (Negative) Urine Urobilinogen (<2.0) mg/dL Ur Leukocyte Esterase (Negative) 09/09/20 09/09/20 Range/Units 12:30 12:30 WBC (3.8-10.6) k/uL RBC (4.30-5.90) m/uL Hgb (13.0-17.5) gm/dL Hct (39.0-53.0) % MCV (80.0-100.0) fL MCH (25.0-35.0) pg MCHC (31.0-37.0) g/dL RDW (11.5-15.5) % Plt Count (150-450) k/uL MPV Neutrophils % % Lymphocytes % % Monocytes % % Eosinophils % % Basophils % % Neutrophils # (1.3-7.7) k/uL Lymphocytes # (1.0-4.8) k/uL Monocytes # (0-1.0) k/uL Eosinophils # (0-0.7) k/uL Basophils # (0-0.2) k/uL PT (9.0-12.0) sec INR (<1.2) APTT (22.0-30.0) sec Sodium (137-145) mmol/L Potassium (3.5-5.1) mmol/L Chloride (98-107) mmol/L Carbon Dioxide (22-30) mmol/L Anion Gap mmol/L BUN (9-20) mg/dL Creatinine (0.66-1.25) mg/dL Est GFR (CKD-EPI)AfAm (>60 ml/min/1.73 sqM) Est GFR (CKD-EPI)NonAf (>60 ml/min/1.73 sqM) Glucose (74-99) mg/dL Plasma Lactic Acid Renzo 1.0 (0.7-2.0) mmol/L Calcium (8.4-10.2) mg/dL Total Bilirubin (0.2-1.3) mg/dL AST (17-59) U/L ALT (4-49) U/L Alkaline Phosphatase (38-126) U/L Total Protein (6.3-8.2) g/dL Albumin (3.5-5.0) g/dL Amylase (30-110) U/L Lipase (23-300) U/L Urine Color Light Yellow Urine Appearance Clear (Clear) Urine pH 6.0 (5.0-8.0) Ur Specific [place] 1.010 (1.001-1.035) Urine Protein Negative (Negative) Urine Glucose (UA) Negative (Negative) Urine Ketones Negative (Negative) Urine Blood Negative (Negative) Urine Nitrite Negative (Negative) Urine Bilirubin Negative (Negative) Urine Urobilinogen <2.0 (<2.0) mg/dL Ur Leukocyte Esterase Negative (Negative) Disposition Clinical Impression: Epigastric pain, Gastritis and duodenitis Disposition: ADMITTED IP TO THIS [facility] Condition: Stable Is patient prescribed a controlled substance at d/c from ED?: No Referrals: Diego Ochoa MD [Primary Care Provider] - 1-2 days Decision to Admit Reason: Admit from EC Decision Date: 09/09/20 Decision Time: 14:25
[2020-09-09 12:56] LABS: Appearance,Urine Clear (Clear); Bilirubin,Urine Negative (Negative); Blood,Urine Negative (Negative); Color,Urine Light Yellow; Glucose,Urine (UA) Negative (Negative); Ketones,Urine Negative (Negative); Leukocyte Esterase,Urine Negative (Negative); Nitrite,Urine Negative (Negative); Protein,Urine Negative (Negative); Urobilinogen,Urine <2.0 mg/dL (<2.0)
[2020-09-09 13:08] LABS: Albumin 3.8 g/dL (3.5-5.0); Calcium 9.3 mg/dL (8.4-10.2); Potassium 3.9 mmol/L (3.5-5.1); Total Bilirubin 0.6 mg/dL (0.2-1.3); Total Protein 6.5 g/dL (6.3-8.2)
[2020-09-09 13:18] LABS: Basophils % (A) 0 %; Eosinophils # (A) 0.1 k/uL (0-0.7); Eosinophils % (A) 2 %; HCT 44.7 % (39.0-53.0); Lymphocytes # (A) 1.2 k/uL (1.0-4.8); Lymphocytes % (A) 15 %; MCH 31.7 pg (25.0-35.0); MCHC 33.6 g/dL (31.0-37.0); MCV 94.3 fL (80.0-100.0); Mean Platelet Volume 7.6; Monocytes # (A) 0.3 k/uL (0-1.0); Monocytes % (A) 4 %; Neutrophils # (A) 5.9 k/uL (1.3-7.7); Neutrophils % (A) 78 %; Platelet Count 167 k/uL (150-450); RBC 4.74 m/uL (4.30-5.90); RDW 13.4 % (11.5-15.5); WBC 7.5 k/uL (3.8-10.6)
[2020-09-09 13:23] LABS: Partial Thromboplastin Time 22.2 sec (22.0-30.0); Prothrombin Time 10.7 sec (9.0-12.0)
--- NOTE | 2020-09-09 13:48 | CT ---
EXAMINATION TYPE: CT abdomen pelvis w con DATE OF EXAM: 09/09/2020 COMPARISON: None. HISTORY: epigastric pain and heart burn CT DLP: 682.2 mGycm, Automated Exposure Control for Dose Reduction was Utilized. CONTRAST: CT scan of the abdomen and pelvis is performed without oral but with IV Contrast, patient injected wi th 100 mL of Isovue 300. FINDINGS: LUNG BASES: Suspected stent in the distal RCA axial image 7. Right coronary artery is dominant. Heart size upper limits of normal. Dependent linear atelectasis in both bases. LIVER/GB: No significant abnormality is appreciated. PANCREAS: No significant abnormality is seen. SPLEEN: No significant abnormality is seen. ADRENALS: No significant abnormality is seen. KIDNEYS: Symmetric cortical medullary uptake and excretion with 1-2 punctate nonobstructing calculi r ight kidney, for reference upper pole coronal image 59. Also suspect 1-2 punctate calculi left kidney for reference upper pole 1 to 2 mm calculus coronal image 61. No hydronephrosis seen bilaterally. Th ere is 8 mm simple appearing thin-walled cyst posteriorly in the upper to mid pole level left kidney incidentally noted BOWEL: Suboptimal evaluation of bowel without enteric contrast. Stomach poorly distended and thus sub optimally evaluated. Mild to moderate diffuse gastric fold prominence is seen. In the second portion of duodenum there is severe wall thickening with mild surrounding fat stranding. There is small low d ense 1.4 cm outpouching favoring tiny diverticulum, focal ulcer at this level not excluded. No suspicious small or large bowel dilatation is seen distal to this. Terminal ileum shows mild wall thickening but poor distention, finding presumed on the basis of poor distention. Some diverticula in the distal colon are present. Short segment of moderate concentric wall thickening sigmoid rectal co matt could reflect spasm, consider colonoscopy follow-up to exclude neoplasm if it has not been perfor med in last 3 years. PROSTATE/SEMINAL VESICLES: Enlarged prostate consistent with BPH adjacent scattered phleboliths. Pros [place] bulges on bladder base. Some central calcifications incidentally noted. LYMPH NODES: No greater than 1cm abdominal or pelvic lymph nodes are appreciated. OSSEOUS STRUCTURES: Multilevel posterior disc herniations efface the anterior thecal sac L2-L3 throug h L4-L5 level sagittal image 61. OTHER: No significant additional abnormality is seen. IMPRESSION: 1. Severe duodenitis with possible small focal duodenal ulcer second portion of duodenum. Consider di rect visualization to further evaluate. Suspect mild to moderate diffuse underlying gastritis. Other nonurgent findings as detailed above.
[2020-09-09] MEDS ORDERED: PANTOPRAZOLE 40 MG/10 ML VIAL IVP STA (14:06)
[2020-09-09] MEDS ORDERED: ONDANSETRON 4 MG/2 ML VIAL IVP PRN ×2 (14:19→15:12)
[2020-09-09] MEDS ORDERED: NALOXONE 0.4 MG/ML 1 ML VIAL IV PRN ×2 (14:19→15:08)
[2020-09-09] MEDS ORDERED: HYDROmorphone 0.5 MG/0.5 ML SYRINGE IVP PRN (14:19)
[2020-09-09] MEDS ORDERED: ACETAMINOPHEN TAB 325 MG TAB PO PRN (15:08)
[2020-09-09] MEDS ORDERED: NITROGLYCERIN SL TABS 0.4 MG TAB SUBLINGUAL PRN (15:11)
[2020-09-09] MEDS: SODIUM CHLORIDE 0.9% 1,000 ML IV SCH (15:59)
--- NOTE | 2020-09-09 17:05 | P.HPIM ---
History of Present Illness H&P Date: 09/09/20 Chief Complaint: abdominal pain 70-year-old man with medical history of hypertension, hyperlipidemia, CAD presented with abdominal pain. Patient says that he's had pain for the last 3-4 weeks, in the last 3-4 days started to develop nausea and vomiting as well. He denies having any bloody emesis. He also reports constipation. He says the pain is predominantly in his epigastrium and left upper quadrant. He was admitted several weeks ago for chest pain and underwent left heart cath which demonstrated coronary artery disease, was treated medically without PCI. Since then he has been on aspirin, also takes meloxicam twice a day for general body aches and pains. He denies fevers, chills, chest pain, dyspnea, palpitations, cough, dysuria, dyschezia, and the/weakness. In the emergency room, patient was noted to have duodenitis with possible ulceration on CT of the abdomen/pelvis. For this reason, hospitalist service was consult for admission, with plan to have GI consultation. Review of Systems All Systems reviewed and pertinent positives and negatives noted in HPI, all other symptoms are negative Past Medical History Past Medical History: Hypertension, Myocardial Infarction ([place]) Last Myocardial Infarction Date:: 10-28-2013 History of Any Multi-Drug Resistant Organisms: None Reported Past Surgical History: Heart Catheterization With Stent, Hernia Repair, Orthopedic Surgery Additional Past Surgical History / Comment(s): inguinal Past Anesthesia/Blood Transfusion Reactions: No Reported Reaction Date of Last Stent Placement:: 2015 Past Psychological History: No Psychological Hx Reported Smoking Status: Current every day smoker Past Alcohol Use History: None Reported Past Drug Use History: None Reported - Past Family History Father Family Medical History: Myocardial Infarction ([place]) Mother Family Medical History: Myocardial Infarction ([place]) Medications and Allergies Home Medications Medication Instructions Recorded Confirmed Type Atorvastatin [Lipitor] 80 mg PO HS #30 tab 10/31/13 09/09/20 Rx lisinopriL [Zestril] 5 mg PO DAILY 08/02/20 09/09/20 History Aspirin 81 mg PO DAILY chew 08/05/20 09/09/20 Rx Meloxicam [Mobic] 7.5 mg PO BID 08/23/20 09/09/20 History Nitroglycerin Sl Tabs [Nitrostat] 0.4 mg SL Q5M PRN 08/23/20 09/09/20 History Isosorbide Mononitrate ER [Imdur] 30 mg PO DAILY #30 tab.er.24h 08/24/20 09/09/20 Rx Metoprolol Tartrate [Lopressor] 50 mg PO BID 09/09/20 09/09/20 History Allergies Allergy/AdvReac Type Severity Reaction Status Date / Time No Known Allergies Allergy Verified 09/09/20 14:07 Physical Exam Osteopathic Statement: *. No significant issues noted on an osteopathic structural exam other than those noted in the History and Physical/Consult. Vitals: Vital Signs Temp Pulse Resp BP Pulse Ox 09/09/20 16:23 68 18 126/67 93 L 09/09/20 14:50 73 16 139/74 96 09/09/20 12:13 98.1 F 66 19 170/84 97 Intake and Output 09/09/20 09/09/20 09/09/20 06:59 14:59 22:59 Other: Weight 68.039 kg Gen: awake, alert HEENT: normocephalic, atraumatic, good hearing acuity, moist mucous membranes Resp: good air exchange, breathing comfortably with no accessory muscle use, clear to auscultation bilaterally without wheezes CVS: good distal perfusion x 4, regular rate and rhythm without murmurs GI: soft, nondistended, tenderness to palpation in the left upper quadrant and epigastrium : no SPT, no CVAT, pierre catheter not present MSK: no pitting edema, no clubbing Neuro: non-focal, moving all extremities Psych: cooperative, euthymic mood Results CBC & Chem 7: 09/09/20 12:30 09/09/20 12:29 Labs: Abnormal Lab Results - Last 24 Hours (Table) 09/09/20 Range/Units 12:29 Chloride 111 H (98-107) mmol/L Glucose 115 H (74-99) mg/dL Assessment and Plan Assessment: Duodenitis -Admit to observation -PPI twice a day -Maintain large-bore IV access -GI consult -Tums when necessary -CBC daily -Monitor on telemetry CAD HTN HLD -Continue home medications, except for -Hold home meloxicam Patient is a full code DVT prophylaxis is contraindicated at this time given the likelihood of GI ulcer
[2020-09-09] MEDS: METOPROLOL TARTRATE 50 MG TAB PO SCH (20:37)
[2020-09-09] MEDS: PANTOPRAZOLE 40 MG/10 ML VIAL IVP SCH (20:38)
[2020-09-09] MEDS ORDERED: ATORVASTATIN 80 MG TAB PO SCH (21:00)
[2020-09-10 02:04] VITALS: PULSE 65
[2020-09-10] MEDS: SODIUM CHLORIDE 0.9% 1,000 ML IV SCH (08:39)
[2020-09-10] MEDS: METOPROLOL TARTRATE 50 MG TAB PO SCH (08:40)
[2020-09-10] MEDS: PANTOPRAZOLE 40 MG/10 ML VIAL IVP SCH (08:40)
[2020-09-10 09:00] LABS: Basophils % (A) 1 %; Eosinophils # (A) 0.2 k/uL (0-0.7); Eosinophils % (A) 2 %; HCT 43.5 % (39.0-53.0); HGB 14.3 gm/dL (13.0-17.5); Lymphocytes # (A) 1.6 k/uL (1.0-4.8); Lymphocytes % (A) 23 %; MCH 31.3 pg (25.0-35.0); MCHC 32.9 g/dL (31.0-37.0); MCV 95.1 fL (80.0-100.0); Mean Platelet Volume 7.3; Monocytes # (A) 0.3 k/uL (0-1.0); Monocytes % (A) 4 %; Neutrophils # (A) 4.7 k/uL (1.3-7.7); Neutrophils % (A) 69 %; Platelet Count 156 k/uL (150-450); RBC 4.57 m/uL (4.30-5.90); RDW 13.5 % (11.5-15.5); WBC 6.8 k/uL (3.8-10.6)
[2020-09-10] MEDS ORDERED: ISOSORBIDE MONONITRATE ER 30 MG TAB.ER.24H PO SCH (09:00)
[2020-09-10] MEDS ORDERED: lisinopriL 5 MG TAB PO SCH (09:00)
[2020-09-10] MEDS ORDERED: ASPIRIN 81 MG PO SCH (09:00)
[2020-09-10 09:08] VITALS: BP 131/68; RESP 16; TEMP 97.5
[2020-09-10 09:15] LABS: INR 1.1 (<1.2); Prothrombin Time 11.2 sec (9.0-12.0)
[2020-09-10 09:53] LABS: Potassium 3.9 mmol/L (3.5-5.1); Total Bilirubin 0.7 mg/dL (0.2-1.3)
[2020-09-10 10:05] LABS: Albumin 3.4 g/dL (3.5-5.0); Calcium 9.1 mg/dL (8.4-10.2)
--- NOTE | 2020-09-10 13:46 | CONS ---
CONSULTATION DATE OF DICTATION: September 10, 2020 REASON FOR CONSULTATION: Abdominal pain. HISTORY OF PRESENT ILLNESS: The patient is a 70-year-old pleasant white male who came to the emergency room complaining of upper abdominal pain for the last 3-4 days duration. He started having some nausea and vomiting and he came to the emergency room yesterday. He had a CT of the abdomen and pelvis done that showed thickening of the antrum as well as severe duodenitis and possibility of a duodenal ulcer suggested by the radiologist. The patient denies any NSAID use. No prior history of peptic ulcer disease. He was started on Protonix. This morning he is feeling somewhat better. He also has some constipation issues. No prior history of EGD or colonoscopy in the past. PAST MEDICAL HISTORY: Significant for hypertension and degenerative joint disease. MEDICATIONS AT HOME: Zestril, Mobic, Nitrostat, Lopressor. ALLERGIES: None. PAST SURGICAL HISTORY: Cardiac catheterization with stent placement, inguinal hernia repair. SOCIAL HISTORY: Chronic smoker, no alcohol use. FAMILY HISTORY: Father coronary artery disease. Mother had coronary artery disease. REVIEW OF SYSTEMS: CARDIOPULMONARY: No chest pain or shortness of breath. GENITOURINARY: No dysuria or hematuria. MUSCULOSKELETAL: Unremarkable. SKIN: Unremarkable. ENDOCRINE: Unremarkable. PSYCHIATRIC: Unremarkable. NEUROLOGY: Unremarkable. ENT/VISION: Unremarkable. CONSTITUTIONAL: No recent weight loss. No fever, chills, night sweats. PHYSICAL EXAMINATION: Patient appears comfortable. No apparent distress. Vital signs are stable. Blood pressure is 131/68, pulse rate 65, temperature 97.5. HEENT EXAMINATION: Unremarkable. Conjunctivae pink. Sclerae anicteric. Oral cavity no lesions. NECK: No JVD or lymph node enlargement. CHEST: Was clear to auscultation. HEART: Regular rate and rhythm. ABDOMEN: Soft. Mild tenderness in the epigastric area. Rest of the abdomen was benign. Bowel sounds are positive. No organomegaly. EXTREMITIES: No pedal edema. NEUROLOGIC: Alert and oriented x3. No focal deficits. LABS: WBC 6.8, hemoglobin 14.3 platelets normal. PT, INR is within normal limits. BUN and creatinine are normal. COVID-[address] of the abdomen and pelvis showed severe gastritis as well as thickening severe duodenitis and possibility of duodenal ulcer was suggested by the radiologist. IMPRESSION: 1. This is a patient who presents with epigastric pain associated with nausea, vomiting on and off for the last 3-4 weeks duration. He does take Mobic on a regular basis for degenerative joint disease. CAT scan showed thickening of the antrum as well as duodenum and possibility of duodenal ulcer was suggested by the radiologist. The patient denies any GI bleed. Hemoglobin is stable. Rule out peptic ulcer disease. 2. History of hypertension. 3. History of hypercholesteremia. RECOMMENDATIONS: 1. Continue with Protonix 40 mg twice daily. 2. Continue with a clear liquid diet. 3. We will proceed with an EGD tomorrow, discussed with the patient risks, benefits and complications of the procedure and he is agreeable to it. Thank you for this consultation. KEVINL / IJN: [id number] /
--- NOTE | 2020-09-10 15:24 | P.DS ---
Providers Date of admission: 09/09/20 14:19 Expected date of discharge: 09/10/20 Attending physician: Jet Lopez MD Consults: 09/09/20 14:19 Consult Physician Routine Consulting Provider: Tom Hernandez Consult Reason/Comments: Abdominal pain Do you want consulting provider notified?: Yes Primary care physician: Diego Ochoa Hospital Course: 70-year-old man with medical history of hypertension, hyperlipidemia, CAD presented with abdominal pain. Patient says that he's had pain for the last 3-4 weeks, in the last 3-4 days started to develop nausea and vomiting as well. He denies having any bloody emesis. He also reports constipation. He says the pain is predominantly in his epigastrium and left upper quadrant. He was admitted several weeks ago for chest pain and underwent left heart cath which demonstrated coronary artery disease, was treated medically without PCI. Since then he has been on aspirin, also takes meloxicam twice a day for general body a ches and pains. He denies fevers, chills, chest pain, dyspnea, palpitations, cough, dysuria, dyschezia, and the/weakness. In the emergency room, patient was noted to have duodenitis with possible ul ceration on CT of the abdomen/pelvis. For this reason, hospitalist service was consult for admission, with plan to have GI consultation. Duodenitis -Admitted to observation and telemetry (no acute events) -PPI twice a day via IV was transitioned to 40mg PO BID on discharge -Maintain large-bore IV access -GI consult, recommended outpatient endoscopy and information was distributed to patient for follow up instructions -CBC daily remained stable CAD HTN HLD -Continue home medications, except for -Hold home meloxicam, which was held on discharge too. Assessment: Gen: awake, alert HEENT: normocephalic, atraumatic, good hearing acuity, moist mucous membranes Resp: good air exchange, breathing comfortably with no accessory muscle use, clear to auscultation bilaterally without wheezes CVS: good distal perfusion x 4, regular rate and rhythm without murmurs GI: soft, nondistended, tenderness to palpation in the left upper quadrant and epigastrium : no SPT, no CVAT, pierre catheter not present MSK: no pitting edema, no clubbing Neuro: non-focal, moving all extremities Psych: cooperative, euthymic mood Patient Condition at Discharge: Good Plan - Discharge Summary New Discharge Prescriptions: New Acetaminophen Tab [Tylenol] 650 mg PO Q6HR PRN tab PRN Reason: Mild Pain Or Fever > 100.5 Pantoprazole [Protonix] 40 mg PO BID #60 tablet.dr Continue Atorvastatin [Lipitor] 80 mg PO HS #30 tab lisinopriL [Zestril] 5 mg PO DAILY Aspirin 81 mg PO DAILY chew Nitroglycerin Sl Tabs [Nitrostat] 0.4 mg SL Q5M PRN PRN Reason: Chest Pain Isosorbide Mononitrate ER [Imdur] 30 mg PO DAILY #30 tab.er.24h Metoprolol Tartrate [Lopressor] 50 mg PO BID Discontinued Meloxicam [Mobic] 7.5 mg PO BID Discharge Medication List Atorvastatin [Lipitor] 80 mg PO HS #30 tab 10/31/13 [Rx] lisinopriL [Zestril] 5 mg PO DAILY 08/02/20 [History] Aspirin 81 mg PO DAILY chew 08/05/20 [Rx] Nitroglycerin Sl Tabs [Nitrostat] 0.4 mg SL Q5M PRN 08/23/20 [History] Isosorbide Mononitrate ER [Imdur] 30 mg PO DAILY #30 tab.er.24h 08/24/20 [Rx] Metoprolol Tartrate [Lopressor] 50 mg PO BID 09/09/20 [History] Acetaminophen Tab [Tylenol] 650 mg PO Q6HR PRN tab 09/10/20 [Rx] Pantoprazole [Protonix] 40 mg PO BID #60 tablet. 09/10/20 [Rx] Follow up Appointment(s)/Referral(s): Diego Ochoa MD [Primary Care Provider] - 1-2 days Xin Celis MD [STAFF PHYSICIAN] - 1 Week (Please follow up for Upper or Lower Scope.) Patient Instructions/Handouts: Acute Abdominal Pain (DC) Discharge Disposition: HOME SELF-CARE
== END 2020-09-10 14:25 | disposition home or self-care (01) ==
LOC: EC 12:04 → 1SOBS 14:19
PROVIDERS: ADMIT Internal Medicine; ATTEND Internal Medicine
DX: K29.80 Duodenitis without bleeding (principal); K29.70 Gastritis, unspecified, without bleeding; I10 Essential (primary) hypertension; E78.5 Hyperlipidemia, unspecified; I25.10 Atherosclerotic heart disease of native coronary artery without angina pectoris; K59.00 Constipation, unspecified; I25.2 Old myocardial infarction; F17.200 Nicotine dependence, unspecified, uncomplicated; M19.90 Unspecified osteoarthritis, unspecified site; E78.00 Pure hypercholesterolemia, unspecified; Z20.822 Contact with and (suspected) exposure to COVID-19; Z95.5 Presence of coronary angioplasty implant and graft; Z79.899 Other long term (current) drug therapy; Z79.82 Long term (current) use of aspirin; Z79.1 Long term (current) use of non-steroidal anti-inflammatories (NSAID); Z82.49 Family history of ischemic heart disease and other diseases of the circulatory system
CPT/HCPCS: 96376 ×2; 96374; 96375; 99285; 36415; 93005; 80053 ×2; 82150; 83605; 83690; 83735; 85025 ×2; 85610 ×2; 85730; 81003; 87636; 74177; G0378 ×2; J2270; C9113 ×2; Q9967

== ENCOUNTER → 2020-09-17 | Outpatient (CLI) | payer MEDICARE, OTHER ==
--- NOTE | 2020-09-17 12:15 | US ---
EXAMINATION TYPE: US venous doppler duplex LE LT DATE OF EXAM: 09/17/2020 10:25 AM COMPARISON: NONE CLINICAL HISTORY: M79.605 L upper quad pain, M79.662 L Leg pain. Left upper thigh lateral burning and thickness per patient. No history of blood clot. SIDE PERFORMED: Left TECHNIQUE: The lower extremity deep venous system is examined utilizing real time linear array sonog ingrid with graded compression, doppler sonography and color-flow sonography. VESSELS IMAGED: Common Femoral Vein Deep Femoral Vein Greater Saphenous Vein * Femoral Vein Popliteal Vein Small Saphenous Vein * Proximal Calf Veins (* superficial vessels) Left Leg: Negative for DVT Grayscale, color doppler, spectral doppler imaging performed of the deep veins of the bilateral lower extremities. There is normal flow, compressibility, vascular waveforms. IMPRESSION: No ultrasound evidence for acute DVT in the left lower extremity.
== END | disposition home or self-care (01) ==
LOC: RADUSWWP 10:08
PROVIDERS: ATTEND Family Medicine
DX: M79.605 Pain in left leg (principal)

== ENCOUNTER → 2020-10-26 | Outpatient (CLI) | payer MEDICARE, OTHER ==
--- NOTE | 2020-10-28 09:02 | P.ARTDOP ---
Arterial Doppler LOWER EXTREMITY ARTERIAL DOPPLER: DATE OF SERVICE: 10/26/2020 Reason for study: Left leg pain. Doppler waveforms: Multiphasic bilaterally throughout. Pulse volume recording: []. Pressure gradients: None. Ankle-brachial indices: Greater than 1 bilaterally. Toe brachial indices: 0.71 on the right, 0.76 on the left Impression: Normal study.
== END | disposition home or self-care (01) ==
LOC: RADUSWWP 07:07
PROVIDERS: ATTEND Family Medicine
DX: M79.605 Pain in left leg (principal)
CPT/HCPCS: 93922

== ENCOUNTER → 2022-09-12 | Outpatient (CLI) | payer MEDICARE ==
--- NOTE | 2022-09-12 10:00 | CTL ---
EXAMINATION TYPE: CT Low Dose Lung DATE OF EXAM ORDERED: 09/12/2022 HISTORY: . Lung cancer screening CT DLP: 59.[address] CTDI: 1.80 mGy Automated exposure control for dose reduction was used. SCREENING VISIT: COMPARISON: None TECHNIQUE: Low dose computed tomography scan was performed through the chest at 1 mm thick sections a nd reconstructed images in multiple planes at 1 mm and [address] DIAGNOSTIC QUALITY: Satisfactory FINDINGS: Biapical pleural thickening. Moderate emphysematous changes are seen. There is no evidence of consoli dative pneumonia, pleural effusion or pneumothorax. Subsegmental changes posteriorly in the lungs mos t typical of atelectasis. No overt failure. There is coronary artery calcification. Heart is prominent. Subsegmental changes involving the anteri or margin of the left lower lobe. Hypertrophic degenerative changes of the spine. IMPRESSION: 1. Diffuse emphysematous changes with no evidence of acute infiltrate 2. Coronary artery calcification. CT LUNG RAD AND CT CHEST RECOMMENDATION: Lung-Rad 2 Benign Appearance or Behavior: Continue annual sc reening with LDCT in 12 months.
== END | disposition home or self-care (01) ==
LOC: RADCTMAIN 06:51
PROVIDERS: ATTEND Family Medicine
DX: Z12.2 Encounter for screening for malignant neoplasm of respiratory organs (principal); F17.210 Nicotine dependence, cigarettes, uncomplicated
CPT/HCPCS: 71271

== ENCOUNTER 2024-08-25 02:59 | Inpatient (IN) | payer MEDICARE ==
[2024-08-25] MEDS ORDERED: MORPHINE SULFATE 4 MG/ML SYRINGE IV PRN (03:01)
[2024-08-25] MEDS ORDERED: NITROGLYCERIN SL TABS 0.4 MG TAB SUBLINGUAL PRN ×2 (03:01→11:49)
--- NOTE | 2024-08-25 03:03 | ED ---
Recheck HPI - General Stated Complaint: N stemi Time Seen by Provider: 08/25/24 03:01 Source: RN notes reviewed, old records reviewed Mode of arrival: EMS Limitations: no limitations - History of Present Illness Initial Comments: This is a 74 male excepted in transfer from outside facility for elevated troponin persistently elevated troponin with consideration and persistent chest pain. MD Complaint: abnormal lab (Troponin non-ST elevated NV) Returns Today for: Called Because of Abnormal Lab/Test Context: planned re-check, called for abnormal lab result Associated Symptoms: chest pain Treatments Prior to Arrival: other - Related Data Home Medications Medication Instructions Recorded Confirmed lisinopriL [Zestril] 5 mg PO DAILY 08/02/20 09/09/20 Nitroglycerin Sl Tabs [Nitrostat] 0.4 mg SL Q5M PRN 08/23/20 09/09/20 Metoprolol Tartrate [Lopressor] 50 mg PO BID 09/09/20 09/09/20 Previous Rx's Medication Instructions Recorded Atorvastatin [Lipitor] 80 mg PO HS #30 tab 10/31/13 Aspirin 81 mg PO DAILY chew 08/05/20 Isosorbide Mononitrate ER [Imdur] 30 mg PO DAILY #30 tab.er.24h 08/24/20 Acetaminophen Tab [Tylenol] 650 mg PO Q6HR PRN tab 09/10/20 Pantoprazole [Protonix] 40 mg PO BID #60 tablet. 09/10/20 Allergies Allergy/AdvReac Type Severity Reaction Status Date / Time No Known Allergies Allergy Verified 08/25/24 03:07 Review of Systems ROS Statement: Those systems with pertinent positive or pertinent negative responses have been documented in the HPI. ROS Other: All systems not noted in ROS Statement are negative. Past Medical History Past Medical History: Hypertension, Myocardial Infarction (NV) Last Myocardial Infarction Date:: 10-28-2013 History of Any Multi-Drug Resistant Organisms: None Reported Past Surgical History: Heart Catheterization With Stent, Hernia Repair, Orthopedic Surgery Additional Past Surgical History / Comment(s): inguinal Past Anesthesia/Blood Transfusion Reactions: No Reported Reaction Date of Last Stent Placement:: 2015 Past Psychological History: No Psychological Hx Reported Additional Psychological History / Comment(s): He is has 2 children and several grandchildren he is retired from [employer] Smoking Status: Current every day smoker Past Alcohol Use History: None Reported Past Drug Use History: None Reported - Past Family History Father Family Medical History: Myocardial Infarction (NV) Mother Family Medical History: Myocardial Infarction (NV) General Exam General appearance: alert, in no apparent distress Head exam: Present: atraumatic, normocephalic, normal inspection Eye exam: Present: normal appearance, PERRL, EOMI. Absent: scleral icterus, conjunctival injection, periorbital swelling ENT exam: Present: normal exam, mucous membranes moist Neck exam: Present: normal inspection. Absent: tenderness, meningismus, lymphadenopathy Respiratory exam: Present: normal lung sounds bilaterally. Absent: respiratory distress, wheezes, rales, rhonchi, stridor Cardiovascular Exam: Present: regular rate, normal rhythm, normal heart sounds. Absent: systolic murmur, diastolic murmur, rubs, gallop, clicks GI/Abdominal exam: Present: soft, normal bowel sounds. Absent: distended, tenderness, guarding, rebound, rigid Extremities exam: Present: normal inspection, full ROM, normal capillary refill. Absent: tenderness, pedal edema, joint swelling, calf tenderness Back exam: Present: normal inspection Neurological exam: Present: alert, oriented X3, CN II-XII intact Psychiatric exam: Present: normal affect, normal mood Skin exam: Present: warm, dry, intact, normal color. Absent: rash Course Vital Signs 08/25/24 03:03 Temperature 97.6 F Pulse Rate 63 Respiratory 18 Rate Blood Pressure 130/80 O2 Sat by Pulse 94 L Oximetry - Reevaluation(s) Reevaluation #1: 08/25/24 03:24 Medical records reviewed Transfer records reviewed including elevated troponin Reevaluation #2: 08/25/24 03:25 Patient still with chest pain here in the ER Reevaluation #3: 08/25/24 03:25 Patient informed of results questions answered Reevaluation #4: Was pt. sent in by a medical professional or institution (, PA, RIVER DRIVER, urgent care, hospital, or prison...) When possible be specific @ -no Did you speak to anyone other than the patient for history (EMS, parent, family, police, friend...)? What history was obtained from this source @ -no Did you review nursing and triage notes (agree or disagree)? Why? @ -agree Are old charts reviewed (outside hosp., previous admission, EMS record, old EKG, old radiological studies, urgent care reports/EKG's, prison records)? Report findings @ -yes Differential Diagnosis (chest pain, altered mental status, abdominal pain women, abdominal pain men, vaginal bleeding, weakness, fever, dyspnea, syncope, headache, dizziness, GI bleed, back pain, seizure, CVA, palpatations, mental health, musculoskeletal)? @ -prior EKG interpreted by me (3pts min.). @ -yes X-rays interpreted by me (1pt min.). @ -yes negative for acute disease CT interpreted by me (1pt min.). @ -no U/S interpreted by me (1pt. min.). @ -no What testing was considered but not performed or refused? (CT, X-rays, U/S, labs)? Why? @ -none What meds were considered but not given or refused? Why? @ -none Did you discuss the management of the patient with other professionals (professionals i.e. , PA, RIVER DRIVER, lab, RT, psych nurse, social studies department chair, dental services director, teacher, chief client officer, showcase trimmer)? Give summary @ -no Was smoking cessation discussed for >3mins.? @ -no Was critical care preformed (if so, how long)? @ -no Were there social determinants of health that impacted care today? How? (Homelessness, low income, unemployed, alcoholism, drug addiction, transportation, low edu. Level, literacy, decrease access to med. care, custodial, rehab)? @ -none Was there de-escalation of care discussed even if they declined (Discuss DNR or withdrawal of care, Hospice)? DNR status @ -no What co-morbidities impacted this encounter? (DM, HTN, Smoking, COPD, CAD, Cancer, CVA, ARF, Chemo, Hep., AIDS, mental health diagnosis, sleep apnea, morbid obesity)? @ -none Was patient admitted / discharged? Hospital course, mention meds given and route, prescriptions, significant lab abnormalities, going to OR and other pertinent info. @ - Undiagnosed new problem with uncertain prognosis? @ -no Drug Therapy requiring intensive monitoring for toxicity (Heparin, Nitro, Insulin, Cardizem)? @ -no Were any procedures done? @ -no Diagnosis/symptom? @ - Acute, or Chronic, or Acute on Chronic? @ -Acute Uncomplicated (without systemic symptoms) or Complicated (systemic symptoms)? @ -Complicated Side effects of treatment? @ -no Exacerbation, Progression, or Severe Exacerbation? @ -exacerbation Poses a threat to life or bodily function? How? (Chest pain, USA, NV, pneumonia, PE, COPD, DKA, ARF, appy, cholecystitis, CVA, Diverticulitis, Homicidal, Suicidal, threat to staff... and all critical care pts) @ -yes Reevaluation #5: Differential Chest Pain: Stable Angina, Unstable Angina, STEMI, NSTEMI Aortic Dissection, Pneumothorax, Musculoskeletal, Esophageal Spasm GERD, Cholecystitis, Pancreatitis, Zoster, this is not meant to be an all-inclusive list. - Consultations Consultation #1: Spoke with sound who agrees to admit this patient Medical Decision Making - Medical Decision Making 74 male to be admitted for non-ST elevated NV elevated troponin and chest pain - EKG Data -: EKG Interpreted by Me (EKG is sinus 62 WI 176 QRS 86 QTc 382) - Radiology Data Radiology results: report reviewed (Chest x-ray is negative for acute disease), image reviewed Disposition Clinical Impression: Chest pain, COPD (chronic obstructive pulmonary disease), Coronary artery disease, Acute non-ST elevation myocardial infarction (NSTEMI) Disposition: ADMITTED IP TO THIS HOSP Condition: Fair Is patient prescribed a controlled substance at d/c from ED?: No Time of Disposition: 03:30
[2024-08-25] MEDS: HEPARIN SOD,PORK IN 0.45% NACL 25,000 UNIT in 0.45% NACL 1 250ML.BAG IV SCH (03:18)
[2024-08-25] MEDS: ASPIRIN 81 MG PO STA (03:21)
[2024-08-25] MEDS: ATORVASTATIN 80 MG TAB PO STA (03:21)
[2024-08-25 05:18] LABS: Mean Platelet Volume 11.1 fL (9.5-12.2); Platelet Count 163 10*3/uL (140-440)
[2024-08-25 07:57] LABS: Basophils # (A) 0.05 10*3/uL (0.00-0.10); Basophils % (A) 0.6 %; Eosinophils # (A) 0.24 10*3/uL (0.04-0.35); Eosinophils % (A) 2.8 %; HCT 46.1 % (39.6-50.0); HGB 15.8 g/dL (13.0-17.0); Lymphocytes # (A) 2.27 10*3/uL (0.90-5.00); Lymphocytes % (A) 26.9 %; MCH 30.5 pg (27.0-32.0); MCHC 34.3 g/dL (32.0-37.0); Monocytes # (A) 0.45 10*3/uL (0.20-1.00); Monocytes % (A) 5.3 %; Neutrophils # (A) 5.39 10*3/uL (1.80-7.70); Neutrophils % (A) 63.9 %; Platelet Count 177 10*3/uL (140-440); RBC 5.18 10*6/uL (4.40-5.60); RDW 13.4 % (11.5-14.5); WBC 8.44 10*3/uL (4.50-10.00)
[2024-08-25 08:07] LABS: African American GFR (CKD) 74 (>60 ml/min/1.73 sqM); Anion Gap 6 mmol/L; Blood Urea Nitrogen 14 mg/dL (9-20); Calcium 9.3 mg/dL (8.4-10.2); Carbon Dioxide 25 mmol/L (22-30); Chloride 107 mmol/L (98-107); Glucose 93 mg/dL (74-99); Non-African American GFR(CKD) 64 (>60 ml/min/1.73 sqM); Sodium 138 mmol/L (137-145)
[2024-08-25] MEDS: ASPIRIN 81 MG PO SCH (09:02)
[2024-08-25] MEDS: METOPROLOL TARTRATE 25 MG TAB PO SCH (09:03)
[2024-08-25] MEDS: HEPARIN SODIUM 1,000 UN/ML (10ML VL) IV PRN (09:48)
[2024-08-25] MEDS ORDERED: NALOXONE 0.4 MG/ML 1 ML VIAL IV PRN (10:05)
--- NOTE | 2024-08-25 10:05 | P.HPIM ---
History of Present Illness H&P Date: 08/25/24 Patient is a 74-year-old male with past medical history of hypertension, hyperlipidemia, CAD with previous MT and stents placed, tobacco use disorder, who presented to the ER as a transfer from outside facility for elevated troponin and persistent chest pain. Patient states that the pain started after he ate chicken around 8 PM on 08/24, he took some Tums with no pain improvement, then decided to take 4 baby aspirin with no pain improvement, when he decided to go for a walk again no improvement, pain was not relieved by rest as well, he stated only after he was given nitro with pain went away. He usually does not have any symptoms with exertion including chest discomfort or shortness of breath, denied any recent fevers, chills, abdominal pain, changes in bowel habits, dysuria. Afebrile, BP 130/80, heart rate in 60s, satting well on room air. Lab work revealed normal CBC, normal BMP, elevated troponin 0.784 > 0.908, TSH 2.1 EKG on arrival showed no ST elevation, sinus rhythm KS interval 05/15/1975, QTc 382, Patient is admitted as inpatient for further evaluation of NSTEMI, cardiology consulted, started on heparin drip, TTE ordered Pertinent positives and negatives as discussed in HPI, a complete review of systems was performed and all other systems are negative. Patient seen and examined at bedside. Not in acute distress, denies any chest discomfort at this time Vital signs reviewed General: nontoxic, no distress, appears at stated age Derm: warm, dry Head: atraumatic, normocephalic, symmetric Eyes: EOMI, no lid lag, anicteric sclera, pupils equal round reactive to light ENT: Nose and ears atraumatic Neck: No thyromegaly, supple Mouth: no lip lesion, mucus membranes moist Cardiovascular: S1S2 reg, no murmur, no edema Lungs: clear to auscultation bilateral, no rhonchi, no rales, no wheeze, no accessory muscle use Abdominal: soft, nontender to palpation, no guarding, no appreciable organomegaly Ext: no gross muscle atrophy, muscle strength muscle strength 5 out of 5 in all 4 extremities, no contractures Neuro: CN II-XII grossly intact Psych: Alert, oriented, appropriate affect Assessment/Plan: NSTEMI Chest pain History of CAD and MT status post stents years ago Hypertension Hyperlipidemia -Continue heparin drip at 12 units/kg/h, monitor PTT, platelet count -Loaded with aspirin 324, continue with daily aspirin 81 mg p.o., atorvastatin 80 mg nightly -Cardiology consulted, appreciate recommendations -TTE ordered and pending -Monitor serial troponins, lipid panel ordered, A1c, TSH, magnesium level, BMP, CBC Current smoker -1.5 pack year a day, counseled on smoking cessation, previously had several attempts to quit for up to a year, also reports previous alcohol abuse and drug use that he quit many years ago The patient is admitted with an anticipated [greater] than 2 midnight stay as [inpatient/] status for evaluation of NSTEMI. CODE STATUS: Full, surrogate decision maker his DVT prophylaxis: Heparin drip Anticipated discharge date: TBD Anticipated discharge place: [facility] A total of 40minutes was spent on the care of this complex patient more than 50% of the time was spent in counseling and care coordination Past Medical History Past Medical History: Hypertension, Myocardial Infarction (MT) Last Myocardial Infarction Date:: 10-28-2013 History of Any Multi-Drug Resistant Organisms: None Reported Past Surgical History: Heart Catheterization With Stent, Hernia Repair, Orthopedic Surgery Additional Past Surgical History / Comment(s): inguinal Past Anesthesia/Blood Transfusion Reactions: No Reported Reaction Date of Last Stent Placement:: 2015 Past Psychological History: No Psychological Hx Reported Additional Psychological History / Comment(s): He is has 2 children and several grandchildren he is retired from [email or web address] Smoking Status: Current every day smoker Past Alcohol Use History: None Reported Past Drug Use History: None Reported - Past Family History Father Family Medical History: Myocardial Infarction (MT) Mother Family Medical History: Myocardial Infarction (MT) Medications and Allergies Home Medications Medication Instructions Recorded Confirmed Type Metoprolol Tartrate [Lopressor] 50 mg PO BID 09/09/20 08/25/24 History Atorvastatin [Lipitor] 80 mg PO DAILY 08/25/24 08/25/24 History Allergies Allergy/AdvReac Type Severity Reaction Status Date / Time No Known Allergies Allergy Verified 08/25/24 08:12 Physical Exam Vitals: Vital Signs Temp Pulse Resp BP Pulse Ox 08/25/24 06:07 61 18 100/58 95 08/25/24 03:03 97.6 F 63 18 130/80 94 L Intake and Output 08/24/24 08/25/24 08/25/24 22:59 06:59 14:59 Other: Weight 63.503 kg Results CBC & Chem 7: 08/25/24 07:23 08/25/24 07:23 Labs: Abnormal Lab Results - Last 24 Hours (Table) 08/25/24 08/25/24 Range/Units 03:50 04:21 APTT 47.7 H (22.0-30.0) sec Troponin I 0.784 H* (0.000-0.034) ng/mL
--- NOTE | 2024-08-25 10:35 | P.CRDCN ---
History of Present Illness History of present illness: HISTORY OF PRESENT ILLNESS: This is a 74-year-old male with a past medical history significant for coronary artery disease with previous stenting, hyperlipidemia, and nicotine dependence. Patient follows in the office with Dr. Springer. We have been asked to see the patient in consultation for chest pain. Patient examined at the bedside in the emergency room. Patient was transferred from [facility] yesterday. Patient states yesterday he began having chest discomfort in the middle of his chest. He states that he thought it was heartburn initially and took some Tums but did not have any relief. He states he then took aspirin without any relief. He states he went outside to walk around and thought maybe that would help with the chest pain. However it did not. He states the pain radiated into his back into his arm. He denied any shortness of breath. Patient was found to have elevated troponins and was started on IV heparin. At the time of examination, the patient denies any chest pain or pressure. Patient is a current cigarette smoker and reports smoking 1-1/2 packs/day. DIAGNOSTICS: - EKG reveals sinus mechanism with no signs of acute ischemia. - Laboratory data: BBC 8.44. Hemoglobin 15.8. Platelet count 177. Sodium 138. Potassium 4.0. BUN 0.13. TSH 2.130. Troponin 0.784. 0.908. - Current home cardiac medications include atorvastatin 80 mg daily and metoprolol 50 mg twice a day. - Most recent echocardiogram obtained in 2020 revealed ejection fraction 55%, mild mitral regurgitation, mild tricuspid regurgitation - Cardiac catheterization history: July 2020 revealing right dominant system with widely patent PDA and PLV branches of RCA and 40% ostial lesion. PDA and PLV were stented in 2013. Left main has 15% distal lesion. LAD has 30 to 40% multiple areas of narrowing. Circumflex very approximately although nondominant has about an eccentric 70% lesion pretty close to the left main and there is some plaque in the left main distally as well. Medical management was recommended. REVIEW OF SYSTEMS: At the time of my exam: CONSTITUTIONAL: Denies fever or chills. HEENT: Denies blurred vision, vision changes, or eye pain. Denies hemoptysis CARDIOVASCULAR: Denies chest pain. Denies orthopnea. Denies PND. Denies palpitations RESPIRATORY: Denies shortness of breath. GASTROINTESTINAL: Denies abdominal pain. Denies nausea or vomiting. HEMATOLOGIC: Denies bleeding disorders. GENITOURINARY: Denies any blood in urine. SKIN: Denies pruitis. Denies rash. PHYSICAL EXAM: VITAL SIGNS: Reviewed. GENERAL: Well-developed in no acute distress. HEENT: Head is normocephalic. Pupils are equal, round. Sclerae anicteric. Mucous membranes of the mouth are moist. Neck supple. No JVD or thyromegaly LUNGS: Respirations even and unlabored. Lungs essentially clear to auscultation bilaterally. HEART: Regular rate and rhythm. S1 and S2 heard. ABDOMEN: Soft. Nondistended. Nontender. EXTREMITIES: Normal range of motion. No clubbing or cyanosis. Peripheral pulses intact. No lower extremity edema NEUROLOGIC: Awake and alert. Oriented x 3. ASSESSMENT: Non-STEMI Coronary artery disease with previous stenting of the PDA and PLV branch, 2013 Hypertension Hyperlipidemia Nicotine dependence, patient reports smoking 1-1.5 packs per day PLAN: Obtain 2D echo to assess cardiac structure and function Continue IV heparin Continue aspirin 81 mg daily Add atorvastatin 80 mg at night Continue metoprolol tartrate 25 mg twice a day Smoking cessation recommended. Patient to be referred to [place] quit line upon discharge. Patient to undergo cardiac catheterization tomorrow with Dr. Springer Further recommendations pending patient course Nurse practitioner note has been reviewed by physician. Signing provider agrees with the documented findings, assessment, and plan of care documented by WEATHERCASTER as a scribe. Past Medical History Past Medical History: Hypertension, Myocardial Infarction (ND) Last Myocardial Infarction Date:: 10-28-2013 History of Any Multi-Drug Resistant Organisms: None Reported Past Surgical History: Heart Catheterization With Stent, Hernia Repair, Orthopedic Surgery Additional Past Surgical History / Comment(s): inguinal Past Anesthesia/Blood Transfusion Reactions: No Reported Reaction Date of Last Stent Placement:: 2015 Past Psychological History: No Psychological Hx Reported Additional Psychological History / Comment(s): He is has 2 children and several grandchildren he is retired from [employer] Smoking Status: Current every day smoker Past Alcohol Use History: None Reported Past Drug Use History: None Reported - Past Family History Father Family Medical History: Myocardial Infarction (ND) Mother Family Medical History: Myocardial Infarction (ND) Medications and Allergies Home Medications Medication Instructions Recorded Confirmed Type Metoprolol Tartrate [Lopressor] 50 mg PO BID 09/09/20 08/25/24 History Atorvastatin [Lipitor] 80 mg PO DAILY 08/25/24 08/25/24 History Allergies Allergy/AdvReac Type Severity Reaction Status Date / Time No Known Allergies Allergy Verified 08/25/24 08:12 Physical Exam Vitals: Vital Signs Temp Pulse Resp BP Pulse Ox 08/25/24 06:07 61 18 100/58 95 08/25/24 03:03 97.6 F 63 18 130/80 94 L Intake and Output 08/24/24 08/25/24 08/25/24 22:59 06:59 14:59 Other: Weight 63.503 kg Results 08/25/24 07:23 08/25/24 07:23 Cardiac Enzymes 08/25/24 Range/Units 03:50 Troponin I 0.784 H* (0.000-0.034) ng/mL Coagulation 08/25/24 Range/Units 04:21 APTT 47.7 H (22.0-30.0) sec CBC 08/25/24 08/25/24 Range/Units 03:50 07:23 WBC 8.44 (4.50-10.00) 10*3/uL RBC 5.18 (4.40-5.60) 10*6/uL Hgb 15.8 (13.0-17.0) g/dL Hct 46.1 (39.6-50.0) % Plt Count 163 177 (140-440) 10*3/uL Current Medications Generic Name Dose Route Start Last Admin Trade Name Freq PRN Reason Stop Dose Admin Aspirin 81 mg 08/25/24 09:00 Aspirin 81 Mg PO DAILY [facility] Heparin Sodium/Sodium Chloride 250 mls @ 7.62 mls/hr 08/25/24 03:15 08/25/24 03:18 25,000 unit/ Sodium Chloride IV 12 units/kg/hr .Q24H SEGUNDO 7.62 mls/hr Administration Protocol 12 UNITS/KG/HR Metoprolol Tartrate 25 mg 08/25/24 09:00 Metoprolol Tartrate 25 Mg Tab PO BID [facility] Morphine Sulfate 4 mg 08/25/24 03:01 Morphine Sulfate 4 Mg/Ml Syringe IV Q4HR PRN Chest Pain Nitroglycerin 0.4 mg 08/25/24 03:01 Nitroglycerin Sl Tabs 0.4 Mg Tab SUBLINGUAL Q5M PRN Chest Pain Ondansetron HCl 4 mg 08/25/24 03:08 Ondansetron 4 Mg/2 Ml Vial IVP Q8HR PRN Nausea And Vomiting Intake and Output 08/24/24 08/25/24 08/25/24 22:59 06:59 14:59 Other: Weight 63.503 kg 08/25/24 07:23
[2024-08-25] MEDS ORDERED: ALPRAZolam 0.5 MG TAB PO PRN (11:49)
[2024-08-25] MEDS ORDERED: ALPRAZolam 0.25 MG TAB PO PRN (11:49)
[2024-08-25] MEDS: METOPROLOL TARTRATE 50 MG TAB PO SCH (21:57)
[2024-08-25] MEDS: ATORVASTATIN 80 MG TAB PO SCH (21:57)
[2024-08-26] MEDS: SODIUM CHLORIDE 0.9% 1,000 ML in EMPTY BAG 1 BAG IV SCH (01:21)
[2024-08-26] MEDS: ASPIRIN 325 MG TAB PO ONE (05:50)
[2024-08-26] MEDS: ATORVASTATIN 80 MG TAB PO ONE (05:50)
--- NOTE | 2024-08-26 06:13 | P.PN ---
Subjective Progress Note Date: 08/26/24 74 year old M with PMH hypertension, hyperlipidemia, CAD with previous HI and stents placed, tobacco use disorder is transferred from an outside hospital for elevated troponins and chest pain. In the ED he underwent extensive evaluation. BP 130/80, HR 63, T 97.6F, RR 18, 94% on RA. CBC, Coag panel, BMP significant for APTT 47.7. Trop 0.784, 0.908. TSH 2.13. A1c 5.7. EKG showed sinus rhythm with low voltage QRS. Started on heparin drip and admitted for Cardiology evaluation. Cardiology recommends FRANKIE and cardiac cath on 08/26. 08/26 Patient was seen and examined. No chest pain. Maintained on heparin drip at 14 units/kg/hr. Plans for cardiac cath today. General: toxic, no distress, appears older than stated age Derm: warm, dry Head: atraumatic, normocephalic, symmetric Mouth: no lip lesion, mucus membranes moist Cardiovascular: S1S2 reg, no murmur Lungs: Clear to auscultation bilaterally, no rales , no accessory muscle use Ext: no gross muscle atrophy, no edema, no contractures Neuro: No focal neurologic deficits. Psych: Alert and oriented. Based on my assessment of this patient, this patient meets a high complexity level of care. NSTEMI: Continue heparin drip. Monitor APTT. ASA 81 mg PO QD. Lipitor 80 mg PO QHS. Metoprolol 50 mg PO BID. Echo pending. Plans for cardiac cath today. Te lemetry monitoring. Cardiology on board. Hypertension: Metoprolol as above. Dyslipidemia: Lipitor as above. Tobacco abuse: Encouraged to quit. Offered nicotine patch. CODE STATUS: FULL CODE. DVT Prophylaxis: Heparin drip. GI Prophylaxis: Designated medical POA if patient is not able to make medical decisions for themselves: I have reviewed the following economics consultant notes: Cardiology. I have reviewed the results of the following tests: I have ordered the following tests: APTT, Echo pending. I have discussed the care of this patient with the following independent historian: I have independently interpreted the following test below: I have discussed the management of this patient with the following physician: Objective - Vital Signs Vital signs: Vital Signs Temp 97.8 F 08/26/24 00:00 Pulse 76 08/26/24 03:47 Resp 18 08/25/24 20:00 BP 110/74 08/26/24 03:47 Pulse Ox 96 08/25/24 16:08 FiO2 Intake & Output 08/25/24 08/25/24 08/26/24 06:59 18:59 06:59 Intake Total 529.657 Balance 529.657 Weight 63.503 kg 63.503 kg Intake: Intake, IV Titration 49.657 Amount Heparin Sod,Pork in 0.45% 49.657 NaCl 25,000 unit In 0.45 % NaCl 1 250ml.bag @ 12 UNITS/KG/HR 7.62 mls/hr IV .Q24H [facility] Rx#: [id number] Oral 480 - Labs CBC & Chem 7: 08/25/24 07:23 08/25/24 07:23 Labs: Abnormal Lab Results - Last 24 Hours (Table) 08/25/24 08/25/24 08/25/24 Range/Units 03:50 04:21 07:23 APTT 47.7 H (22.0-30.0) sec Troponin I 0.784 H* 0.908 H* (0.000-0.034) ng/mL 08/25/24 08/25/24 08/25/24 Range/Units 08:57 15:19 21:24 APTT 38.5 H 44.0 H 37.8 H (22.0-30.0) sec Troponin I (0.000-0.034) ng/mL
[2024-08-26 06:38] LABS: Mean Platelet Volume 10.1 fL (9.5-12.2); Platelet Count 190 10*3/uL (140-440)
[2024-08-26 06:46] LABS: Partial Thromboplastin Time 28.7 sec (22.0-30.0); Prothrombin Time 11.4 sec (10.0-12.5)
[2024-08-26 07:11] LABS: Magnesium 2.2 mg/dL (1.6-2.3); Phosphorus 3.1 mg/dL (2.5-4.5)
[2024-08-26] MEDS ORDERED: ASPIRIN 325 MG TAB PO SCH (09:00)
[2024-08-26] MEDS: HEPARIN SODIUM,PORCINE 10,000 UNIT in SODIUM CHLORIDE 0.9% 1,000 ML IRRIGATION PRN (10:24)
[2024-08-26] MEDS: SODIUM CHLORIDE 0.9% 1,000 ML IV ONE (10:24)
[2024-08-26] MEDS: HEPARIN SODIUM,PORCINE (1 ML) 2,500 UNIT in SODIUM CHLORIDE 0.9% 250 ML IRRIGATION PRN (10:24)
[2024-08-26] MEDS: MIDAZOLAM 2 MG/2 ML VIAL IVP ONE (10:36)
[2024-08-26] MEDS: LIDOCAINE 1% INJ 10MG/ML (20 ML MDV) SQ ONE (10:37)
[2024-08-26 11:02] LABS: Chol/HDL Ratio 3.02 Ratio; LDL Cholesterol,Calculated 61.9 mg/dL (0.0-131.0); VLDL Calculation 15.72 mg/dL (5.00-40.00)
[2024-08-26] MEDS: NITROGLYCERIN 1000MCG/10ML SYRINGE INTRAARTER ONE (11:16)
[2024-08-26] MEDS: HEPARIN SODIUM 1,000 UN/ML (10ML VL) IVP ONE (11:19)
[2024-08-26] MEDS: IOPAMIDOL-370 100ML BTL INJ ONE ×2 (11:37→11:55)
[2024-08-26] MEDS: TICAGRELOR 90 MG TAB PO ONE (11:38)
[2024-08-26] MEDS: NITROGLYCERIN SL TABS 0.4 MG TAB SUBLINGUAL ONE (11:45)
[2024-08-26] MEDS: HYDROmorphone 0.5 MG/0.5 ML SYRINGE IVP ONE ×2 (11:49→11:57)
[2024-08-26] MEDS: ONDANSETRON 4 MG/2 ML VIAL IVP PRN (12:28)
--- NOTE | 2024-08-26 12:28 | P.PCN ---
Date of Procedure: 08/26/24 Description of Procedure: History: Patient was referred for cardiac catheterization to evaluate for CAD. This patient is known to have CAD, smoking hypertension hyperlipidemia and also some peripheral arterial disease. He underwent stenting of PDA and PLV branches in 2013 which were patent in 2020. He presented to the hospital with symptoms of angina positive troponin was advised to cardiac cath after evaluation by Dr. Allen. I saw the patient this morning and explained to him the rationale risks benefits and options. He understood all details and wished to proceed with the procedure. Procedure: #1 left heart catheterization and coronary angiography. #2 intravascular ultrasound of LAD before and after the PCI procedure. #3 PTCA and stenting of proximal LAD with a drug-eluting stent. Postdilated with a 3.0 caliber NC trek Procedure Details: The risks, benefits, complications, treatment options, and expected outcomes were discussed with the patient. The patient and/or family concurred with the proposed plan, giving informed consent. Patient was brought to the lab instructor after IV hydration was begun and oral premedication was given. Patient was further sedated with midazolam. Patient was prepped and draped in the usual manner. Under strict aseptic precautions and local anesthesia I attempted right radial access I got a decent return but could not advance the wire and sheath very well therefore I took it out. A palpable pulse was still present a pressure bandage was applied. I then performed the procedure from right femoral approach. Using ultrasound guidance I gained access into the right femoral artery and placed a 6 Dominican introducer. Injection noted that SFA was occluded. The puncture was well above the SFA in the common femoral. Following the procedure the sheath was sutured and he was sent to the room in a stable condition. His sheath will be pulled once ACT comes to less than 170 and it will be a manual compression. Angio-Seal was not used. For the radial site pressure bandage was applied and the radial pulse was palpable and good. Following the coronary angiography I proceeded to perform PCI of the proximal LAD. Standard Luis Alberto catheters were used for coronary angiography and the same right catheter was used to check LV pressures but LV gram was not performed PCI procedure details: I used a standard left Luis Alberto guide catheter of 6 Dominican caliber and a run-through wire. Predilatation was performed with a 2.25 caliber 15 mm long NC trek balloon. I performed intravascular ultrasound noted that the reference diameter was about 2.8 mm. I then deployed a 18 mm long 2.75 caliber Xience stent at 14 mago. I initially took it 23 mm long but noted that it was too long I took it out and went back with a 18 mm long Xience stent which was deployed at 14 mago. I performed intravascular ultrasound and noted that there w as a decent apposition but the reference diameter was slightly higher therefore I went back with a 3.0 caliber NC trek and gave an inflation up to 14 mago. Excellent angiographic result was achieved. Intravascular ultrasound revealed full expansion and good apposition. There was a small septal branch less than 1 mm that came off from the diseased area which was jailed and had sluggish flow with mild chest pain that was transient. His small diagonal branch also came off but this did not have any compromising flow at all. Patient tolerated the procedure well. The sheath was sutured and he was sent to the room in a stable condition with the sheath to be pulled once ACT comes below 170. He received a total of about 4500 units of heparin and ACT was between 250 and 300 with the exact number of 282 at the end of the procedure. He was given 180 mg of Brilinta. He will be on aspirin and Brilinta without interruption for 1 year. Results were discussed with the patient but no family members were available. Moderate conscious sedation time was 82 minutes. Patient's oxygen saturation hemodynamics and EKG were monitored closely. After the procedure was completed the sheaths and catheters were all removed. Hemostasis was achieved with Angio-Seal device/manual pressure and FemoStop. Findings: Hemodynamics: Left ventricle end-diastolic pressure was 6 mmHg no gradient across aortic Left Main: Mild 15 to 10% narrowing distally LAD: Proximal 80 to 95% stenosis that involves the septal and diagonal branch. Both of them are less than 1 mm but septal seems to have a fair distribution. CIRC: Nondominant ostial/proximal lesion of about 60% unchanged RCA: Dominant vessel no significant disease in the proximal or midportion distally there is a 40% narrowing and then a large PLV is widely patent with a stent in it that has no disease. PDA has diffuse disease ostial lesion 60% good flow. The stents were provide in 2013 in the PDA and PLV. LV: LV gram not performed Closure Device: None sheath suture Complications: None Estimated Blood Loss: Minimal Impression: Right dominant system no significant disease in the stented PDA and PLV. Proximal LAD has a tight stenosis left main has 10 to 15% distal lesion circumflex has ostial 60% lesion. Significant progression of disease in the LAD Pre Procedure Diagnosis: Non-ST elevation MS Final Post Procedure Diagnosis: Significant proximal LAD disease, with patent stents in the RCA branches and moderate disease in circumflex. Recommendation: PCI of LAD that was performed in the same setting expeditiously. Complications: None; patient tolerated the procedure well. Disposition: 3 S. the telemetry unit- hemodynamically stable. Condition: Stable Discharge Disposition: Probable discharge in a.m.
[2024-08-26 14:08] VITALS: BMI 19.9
[2024-08-26] MEDS: SODIUM CHLORIDE 0.9% 1,000 ML IV SCH (16:43)
[2024-08-26] MEDS: LOSARTAN 25 MG TAB PO SCH (21:19)
[2024-08-27 06:52] LABS: Basophils # (A) 0.04 10*3/uL (0.00-0.10); Basophils % (A) 0.3 %; Eosinophils # (A) 0.05 10*3/uL (0.04-0.35); Eosinophils % (A) 0.4 %; HCT 42.5 % (39.6-50.0); HGB 14.6 g/dL (13.0-17.0); Lymphocytes # (A) 1.19 10*3/uL (0.90-5.00); Lymphocytes % (A) 10.1 %; MCH 30.4 pg (27.0-32.0); MCHC 34.4 g/dL (32.0-37.0); MCV 88.5 fL (80.0-97.0); Mean Platelet Volume 10.2 fL (9.5-12.2); Monocytes # (A) 0.66 10*3/uL (0.20-1.00); Monocytes % (A) 5.6 %; Neutrophils # (A) 9.73 10*3/uL (1.80-7.70); Neutrophils % (A) 83.1 %; Platelet Count 179 10*3/uL (140-440); Platelet Count 180 10*3/uL (140-440); RDW 13.3 % (11.5-14.5); WBC 11.73 10*3/uL (4.50-10.00)
[2024-08-27 07:05] LABS: African American GFR (CKD) 85 (>60 ml/min/1.73 sqM); Anion Gap 6 mmol/L; Blood Urea Nitrogen 13 mg/dL (9-20); Calcium 9.1 mg/dL (8.4-10.2); Carbon Dioxide 25 mmol/L (22-30); Chloride 107 mmol/L (98-107); Glucose 106 mg/dL (74-99); Non-African American GFR(CKD) 73 (>60 ml/min/1.73 sqM); Potassium 3.3 mmol/L (3.5-5.1); Sodium 138 mmol/L (137-145)
[2024-08-27 08:14] VITALS: RESP 16
[2024-08-27] MEDS: TICAGRELOR 90 MG TAB PO SCH (08:23)
[2024-08-27] MEDS: ASPIRIN 81 MG PO SCH (08:24)
--- NOTE | 2024-08-27 10:05 | CA ---
Transthoracic Echo Report Name: Martin Saucedo Age: 74 Gender: M : 1950 Exam Date: 08/27/2024 07:35 Exam Location: [facility] Ht (in): 69 Wt (lb): 137 Ordering Physician: Lico Bashir DO Attending/Referring Phys: [id number], Krysten Bareback Rider Ana Shahid RDCS Procedure CPT: Indications: CP Cardiac Hx: Technical Quality: Technically difficult study Contrast 1: Definity Total Dose (mL): 2 Contrast 2: Total Dose (mL): MEASUREMENTS (Male / Female) Normal Values 2D ECHO LV Diastolic Diameter PLAX 4.6 cm 4.2 - 5.9 / 3.9 - 5.3 cm LV Systolic Diameter PLAX 3.3 cm IVS Diastolic Thickness 1.2 cm 0.6 - 1.0 / 0.6 - 0.9 cm LVPW Diastolic Thickness 1.2 cm 0.6 - 1.0 / 0.6 - 0.9 cm LV Relative Wall Thickness 0.5 RV Internal Dim ED PLAX 4.0 cm LA Systolic Diameter LX 3.9 cm 3.0 - 4.0 / 2.7 - 3.8 cm LV Diastolic Volume MOD BP 63.7 cm??? 67 - 155 / 56 - 104 cm??? LV Systolic Volume MOD BP 23.7 cm??? 22 - 58 / 19 - 49 cm??? LV Ejection Fraction MOD BP 62.8 % >= 55 % LV Cardiac Index MOD BP 1660.8 cm???/min???m??? LV Diastolic Volume MOD 4C 76.3 cm??? LV Systolic Volume MOD 4C 27.3 cm??? LV Ejection Fraction MOD 4C 64.2 % LV Cardiac Index MOD 4C 2035.2 cm???/min???m??? LV Diastolic Length 4C 6.2 cm LV Systolic Length 4C 5.1 cm LV Diastolic Volume MOD 2C 53.2 cm??? LV Systolic Volume MOD 2C 20.5 cm??? LV Ejection Fraction MOD 2C 61.4 % LV Cardiac Index MOD 2C 1356.0 cm???/min???m??? LV Diastolic Length 2C 6.1 cm LV Systolic Length 2C 5.1 cm M-MODE Aortic Root Diameter MM 3.8 cm DOPPLER AV Peak Velocity 120.6 cm/s AV Peak Gradient 5.8 mmHg Mitral E Point Velocity 71.7 cm/s Mitral A Point Velocity 81.3 cm/s Mitral E to A Ratio 0.9 MV Deceleration Time 203.3 ms MV E' Velocity 9.8 cm/s Mitral E to MV E' Ratio 7.3 TR Peak Velocity 249.8 cm/s TR Peak Gradient 25.0 mmHg Right Ventricular Systolic Press 35.2 mmHg FINDINGS Left Ventricle Left ventricular ejection fraction is estimated at 55-60 %. Left ventricular cavity size normal. Mildly increased septal wall thickness. No obvious regional wall motion abnormalities. Right Ventricle . Mild pulmonary hypertension.normal right ventricular size and function. Right Atrium Normal right atrial size. No right atrial thrombus or mass seen. Left Atrium Normal left atrial size. No left atrial thrombus or mass present. Mitral Valve Structurally normal mitral valve. No mitral stenosis, regurgitation or prolapse. Aortic Valve Trileaflet aortic valve. Aortic valve sclerosis. No aortic valve stenosis or regurgitation. Tricuspid Valve Structurally normal tricuspid valve. Mild tricuspid regurgitation. Pulmonic Valve Structurally normal pulmonic valve. No pulmonic regurgitation. Pericardium No pericardial effusion. Aorta Mild aortic dilatation at the level of the sinuses of valsalva 38 mm CONCLUSIONS Technically difficult study. Left ventricular ejection fraction is estimated at 55-60 %. No obvious regional wall motion abnormalities. Normal RV size and systolic function. Mild pulmonary hypertension with RVSP 35 mmHg No obvious significant valve dysfunction Previewed by: Dr Cheikh Figueroa (Electronically Signed) Final Date: 27 August 2024 10:04
[2024-08-27 12:17] VITALS: BP 121/66; PULSE 78; TEMP 98.2
[2024-08-27] MEDS: POTASSIUM CHLORIDE ER 20 MEQ TAB.ER PO STA (12:22)
--- NOTE | 2024-08-27 13:50 | P.PN ---
Subjective HISTORY OF PRESENT ILLNESS: This is a 74-year-old male with a past medical history significant for coronary artery disease with previous stenting, hyperlipidemia, and nicotine dependence. Patient follows in the office with Dr. Springer. We have been asked to see the patient in consultation for chest pain. Patient examined at the bedside in the emergency room. Patient was transferred from [facility] yesterday. Patient states yesterday he began having chest discomfort in the middle of his chest. He states that he thought it was heartburn initially and took some Tums but did not have any relief. He states he then took aspirin without any relief. He states he went outside to walk around and thought maybe that would help with the chest pain. However it did not. He states the pain radiated into his back into his arm. He denied any shortness of breath. Patient was found to have elevated troponins and was started on IV heparin. At the time of examination, the patient denies any chest pain or pressure. Patient is a current cigarette smoker and reports smoking 1-1/2 packs/day. DIAGNOSTICS: - EKG reveals sinus mechanism with no signs of acute ischemia. - Laboratory data: BBC 8.44. Hemoglobin 15.8. Platelet count 177. Sodium 138. Potassium 4.0. BUN 0.13. TSH 2.130. Troponin 0.784. 0.908. - Current home cardiac medications include atorvastatin 80 mg daily and metoprolol 50 mg twice a day. - Most recent echocardiogram obtained in 2020 revealed ejection fraction 55%, mild mitral regurgitation, mild tricuspid regurgitation - Cardiac catheterization history: July 2020 revealing right dominant system with widely patent PDA and PLV branches of RCA and 40% ostial lesion. PDA and PLV were stented in 2013. Left main has 15% distal lesion. LAD has 30 to 40% multiple areas of narrowing. Circumflex very approximately although nondominant has about an eccentric 70% lesion pretty close to the left main and there is some plaque in the left main distally as well. Medical management was recommended. 08/27/2024 Patient is status post cardiac catheterization with Dr. Springer revealing right dominant system with no significant disease in the stented PDA and PLV. Proximal LAD has a tight stenosis left main has 10 to 15% distal lesion, circumflex has ostial 60% lesion. Significant progression of disease in the LAD. Patient underwent PCI of the LAD. Patient examined this morning at the bedside. Patient currently denies chest pain or pressure. He denies shortness of breath. Echocardiogram completed revealing ejection fraction 55 to 60%, mild pulmonary hypertension, no obvious regional wall motion abnormalities, no obvious significant valvular dysfunction PHYSICAL EXAM: VITAL SIGNS: Reviewed. GENERAL: Well-developed in no acute distress. HEENT: Head is normocephalic. Pupils are equal, round. Sclerae anicteric. Mucous membranes of the mouth are moist. Neck supple. No JVD or thyromegaly LUNGS: Respirations even and unlabored. Lungs essentially clear to auscultation bilaterally. HEART: Regular rate and rhythm. S1 and S2 heard. ABDOMEN: Soft. Nondistended. Nontender. EXTREMITIES: Normal range of motion. No clubbing or cyanosis. Peripheral pulses intact. No lower extremity edema NEUROLOGIC: Awake and alert. Oriented x 3. ASSESSMENT: Non-STEMI, status post cardiac catheterization with PCI of the LAD Coronary artery disease with previous stenting of the PDA and PLV branch, 2013 Hypertension Hyperlipidemia Nicotine dependence, patient reports smoking 1-1.5 packs per day PLAN: Continue dual antiplatelet therapy with aspirin and Brilinta for 12 months Continue high intensity statin. LDL goal less than 70. Continue additional cardiac medications including losartan, and metoprolol Smoking cessation recommended. Patient to be referred to [place] quit line upon discharge. Patient may be discharged home today from a cardiac standpoint Nurse practitioner note has been reviewed by physician. Signing provider agrees with the documented findings, assessment, and plan of care documented by BACON DE RINDER as a scribe. Objective - Vital Signs Vital signs: Vital Signs Temp 98.2 F 08/27/24 12:12 Pulse 78 08/27/24 12:12 Resp 16 08/27/24 12:12 BP 121/66 08/27/24 12:12 Pulse Ox 95 08/27/24 12:12 FiO2 Intake & Output 08/26/24 08/27/24 08/27/24 18:59 06:59 18:59 Intake Total 1192.977 240 490 Output Total 100 200 Balance 1092.977 240 290 Weight 61.3 kg Intake: IV 1000 10 Invasive Line 1 10 Intake, IV Titration 192.977 Amount Heparin Sod,Pork in 0.45% 192.977 NaCl 25,000 unit In 0.45 % NaCl 1 250ml.bag @ 12 UNITS/KG/HR 7.62 mls/hr IV .Q24H [facility] Rx#: [id number] Oral 240 480 Output: Urine 100 200 Other: Voiding Method Toilet Toilet Toilet # Voids 3 - Labs CBC & Chem 7: 08/27/24 05:43 08/27/24 05:43 Labs: Abnormal Lab Results - Last 24 Hours (Table) 08/27/24 08/27/24 Range/Units 05:43 05:43 WBC 11.73 H (4.50-10.00) 10*3/uL Immature Gran # 0.06 H (0.00-0.04) 10*3/uL Neutrophils # 9.73 H (1.80-7.70) 10*3/uL Potassium 3.3 L (3.5-5.1) mmol/L Glucose 106 H (74-99) mg/dL
--- NOTE | 2024-08-27 15:05 | P.DS ---
Providers Date of admission: 08/25/24 03:01 Expected date of discharge: 08/27/24 Attending physician: Emelyn Christiansen MD Consults: 08/25/24 03:01 Consult Physician Urgent Consulting Provider: Mary Allen Consult Reason/Comments: nstemi Do you want consulting provider notified?: Yes Primary care physician: [facility] Course: 74 year old M with PMH hypertension, hyperlipidemia, CAD with previous MN and stents placed, tobacco use disorder is transferred from an outside hospital for elevated troponins and chest pain. In the ED he underwent extensive evaluation. BP 130/80, HR 63, T 97.6F, RR 18, 94% on RA. CBC, Coag panel, BMP significant for APTT 47.7. Trop 0.784, 0.908. TSH 2.13. A1c 5.7. EKG showed sinus rhythm with low voltage QRS. Started on heparin drip and admitted for Cardiology evaluation. Cardiology recommends FRANKIE and cardiac cath on 08/26. 08/26 Patient was seen and examined. No chest pain. Maintained on heparin drip at 14 units/kg/hr. Plans for cardiac cath today. 08/27 Patient was seen and examined. Underwent cardiac cath with PTCA and stenting of the proximal LAD with JANA. Cleared by Cardiology for discharge. CBC and BMP significant for WBC 11.73, K 3.3, glu 106. Discharge Plan: Prescription for ASA, Brilinta, Losartan and Nitro SL PRN sent to pharmacy. Follow up with PCP within 1-[address] Springer on 08/29. General: toxic, no distress, appears older than stated age Derm: warm, dry Head: atraumatic, normocephalic, symmetric Mouth: no lip lesion, mucus membranes moist Cardiovascular: S1S2 reg, no murmur Lungs: Clear to auscultation bilaterally, no rales , no accessory muscle use Ext: no gross muscle atrophy, no edema, no contractures Neuro: No focal neurologic deficits. Psych: Alert and oriented. Discharge Diagnosis: NSTEMI Hypokalemia Hypertension Dyslipidemia Tobacco abuse This complex discharge took 35 minutes to complete. Patient Condition at Discharge: Stable Plan - Discharge Summary Discharge Rx Participant: Yes New Discharge Prescriptions: New Aspirin 81 mg PO DAILY #30 tab Ticagrelor [Brilinta] 90 mg PO BID #60 tab Losartan [Cozaar] 25 mg PO HS #30 tab Nitroglycerin Sl Tabs [Nitrostat] 0.4 mg SUBLINGUAL Q5M PRN #20 tab PRN Reason: Chest Pain Continue Atorvastatin [Lipitor] 80 mg PO HS Metoprolol Tartrate [Lopressor] 50 mg PO BID Discharge Medication List Metoprolol Tartrate [Lopressor] 50 mg PO BID 09/09/20 [History] Atorvastatin [Lipitor] 80 mg PO HS 08/25/24 [History] Aspirin 81 mg PO DAILY #30 tab 08/27/24 [Rx] Losartan [Cozaar] 25 mg PO HS #30 tab 08/27/24 [Rx] Nitroglycerin Sl Tabs [Nitrostat] 0.4 mg SUBLINGUAL Q5M PRN #20 tab 08/27/24 [Rx] Ticagrelor [Brilinta] 90 mg PO BID #60 tab 08/27/24 [Rx] Follow up Appointment(s)/Referral(s): Tl Springer MD [STAFF PHYSICIAN] - 08/29/24 9:45 am Sebastián Lamb MD [REFERRING] - 1-2 days (please call PCP and make appointment ) Patient Instructions/Handouts: *Surgery [facility] - After Heart Catheterization - Type Rolling Machine Operator Instructions, Heart Attack (DC), Chest Pain (DC) Discharge Disposition: HOME SELF-CARE
== END 2024-08-27 14:57 | disposition home or self-care (01) | DRG 322 ==
LOC: EC 02:59 → 3SCARD 03:01
PROVIDERS: ADMIT Internal Medicine; ATTEND Internal Medicine
PROC: B2111ZZ Fluoroscopy of Multiple Coronary Arteries using Low Osmolar Contrast (ICD-10-PCS; 2024-08-26)
PROC: B240ZZ3 Ultrasonography of Single Coronary Artery, Intravascular (ICD-10-PCS; 2024-08-26)
PROC: 027034Z Dilation of Coronary Artery, One Artery with Drug-eluting Intraluminal Device, Percutaneous Approach (ICD-10-PCS; principal; 2024-08-26 09:45)
PROC: 4A023N7 Measurement of Cardiac Sampling and Pressure, Left Heart, Percutaneous Approach (ICD-10-PCS; 2024-08-26 09:45)
PROC: B2151ZZ Fluoroscopy of Left Heart using Low Osmolar Contrast (ICD-10-PCS; 2024-08-26 09:45)
DX: I21.4 Non-ST elevation (NSTEMI) myocardial infarction (principal); E78.5 Hyperlipidemia, unspecified; I10 Essential (primary) hypertension; I73.9 Peripheral vascular disease, unspecified; I25.10 Atherosclerotic heart disease of native coronary artery without angina pectoris; E87.6 Hypokalemia; F17.210 Nicotine dependence, cigarettes, uncomplicated; I25.2 Old myocardial infarction; Z79.899 Other long term (current) drug therapy; Z79.82 Long term (current) use of aspirin
CPT/HCPCS: 80048; 80061; 83036; 83735; 84100; 84443; 84484; 85025; 85049; 85610; 85730; 92978; 93005; 93306; 93458; 96365; 96366; 99285